=== PATIENT | female | born 1950 | race Caucasian/White ===

== ENCOUNTER 2023-01-09 14:36 | Outpatient (CLI) | payer OTHER, SELFPAY ==
--- NOTE | ~2023-01-09 | CT_ITS ---
EXAMINATION: CT brain wo con DATE: 01/09/2023 15:15 INDICATION: R51.9 - Headache, unspecified . TECHNIQUE: Computed tomography (CT) of the head was performed without intravenous contrast. The mA wa s adjusted according to patient size. Iterative reconstruction technique was employed. The dose-lengt h product was 605.33 mGy-cm. COMPARISON: 11/17/2015. FINDINGS: No acute intracranial hemorrhage or extra-axial fluid collection. No hydrocephalus, mass, or herniation. No acute ischemic infarct. Unremarkable dural venous sinus attenuation. No acute osseous abnormality. The aerated spaces are clear. Moderate atrophy and chronic white matter change. Atherosclerotic intracranial calcification. Left pa rieto-occipital encephalomalacia. IMPRESSION: No acute intracranial process. Reviewed, dictated and finalized at location K. NE COMMUNITY MANAGER
--- NOTE | ~2023-01-09 | XR_ITS ---
EXAMINATION: XR chest 2V Exam Date/Time: 01/09/2023 15:05 SEARCH ENGINE OPTIMIZATION CONSULTANT HISTORY: CHEMICAL EXPOUSURE X 4 WKS AGO W/ SOB MIDSTERNAL CP SINCE Comparison: 04/08/2011. RESULT: Lines, tubes, and devices: None. Lungs and pleura: Senescent and emphysematous change. Biapical and bilateral upper lung scar. Right lower lung nipple shadow. Subsegmental airspace disease in the right lung base. Bilateral posterior c ostophrenic angle blunting. Cardiomediastinal silhouette: Stable. Other: No acute osseous or upper abdominal finding. IMPRESSION: Subsegmental right basilar atelectasis/consolidation. Possible small bilateral pleural effusions. Reviewed, dictated and finalized at location K. CH ENGINE OPTIMIZATION CONSULTANT
[2023-01-09 15:14] LABS: Basophils Absolute Auto 0.1 K/mm3 (0.0-0.1); Eosinophils Absolute Auto 0.1 K/mm3 (0-0.3); Eosinophils Percent Auto 1.6 % (0-4.4); Hematocrit 44.2 % (37.0-47.0); Hemoglobin 14.3 g/dL (12.0-15.0); Immature Granulocyte Absolute 0.01 K/mm3 (0.00-0.031); Immature Granulocyte Percent A 0.2 % (0-0.5); Lymphocytes Absolute Auto 0.71 K/mm3 (0.9-3.2); Lymphocytes Percent Auto 13.9 % (18.3-44.2); Mean Corpuscular HGB Conc 32.4 g/dl (32-36); Mean Corpuscular Hemoglobin 29.7 pg (26-34); Mean Corpuscular Volume 91.7 fl (80-100); Mean Platelet Volume 10.6 fl (7.4-10.4); Monocytes Absolute Auto 0.4 K/mm3 (0.1-0.6); Monocytes Percent Auto 8.1 % (2.6-8.5); Neutrophils Absolute Auto 3.8 K/mm3 (1.3-6.7); Neutrophils Percent Auto 75.2 % (45.5-73.1); Platelet Count Result 186 k/mm3 (150-375); Red Blood Count 4.82 M/mm3 (4.2-5.4); Red Cell Distribution Width 13.1 % (11.5-14.5); White Blood Count 5.1 K/mm3 (4.5-10.0)
[2023-01-09 15:26] LABS: Alanine Aminotransferase 30 U/L (6-35); Albumin Level 4.2 g/dL (3.5-5.1); Alkaline Phosphatase 105 U/L (38-126); Anion Gap 8 mmol/L (8-16); Aspartate Amino Transferase 41 U/L (14-36); Blood Urea Nitrogen 15 mg/dL (7-17); Calcium 9.5 mg/dL (8.4-10.2); Carbon Dioxide 29 mmol/L (22-30); Chloride 105 mmol/L (98-107); Cholesterol 211 mg/dL (0-200); Estimated Glomerular Filt Rate > 60; Glucose 104 mg/dL (65-110); HDL Direct 99 mg/dL; Potassium 3.9 mmol/L (3.4-5.0); Sodium 142 mmol/L (137-145); Triglycerides 70 mg/dL (<150)
[2023-01-09 15:37] LABS: LDL Cholesterol Direct 85 mg/dL
== END 2023-01-09 14:37 | disposition home or self-care (01) ==
PROVIDERS: PCP Family Medicine; Visit Provider Family Medicine
DX: E78.5 Hyperlipidemia, unspecified (principal); J45.20 Mild intermittent asthma, uncomplicated; L40.9 Psoriasis, unspecified; M06.9 Rheumatoid arthritis, unspecified; Z00.00 Encounter for general adult medical examination without abnormal findings; Z86.73 Personal history of transient ischemic attack (TIA), and cerebral infarction without residual deficits; R51.9 Headache, unspecified; T59.891A Toxic effect of other specified gases, fumes and vapors, accidental (unintentional), initial encounter; Z86.79 Personal history of other diseases of the circulatory system; L10.9 Pemphigus, unspecified
CPT/HCPCS: 36415; 70450; 71046; 80053; 80061; 85025

== ENCOUNTER 2023-05-24 17:48 | Emergency (ER) | payer OTHER, SELFPAY ==
[2023-05-24 18:21] VITALS: BP 157/86; PULSE 72; RESP 16; TEMP 37.1; O2SAT 97
== END 2023-05-24 21:18 | disposition left against medical advice (07) ==
PROVIDERS: PCP Family Medicine
DX: R51.9 Headache, unspecified (principal)
CPT/HCPCS: 99199

== ENCOUNTER 2023-05-30 02:28 | Observation (INO) | payer OTHER, SELFPAY ==
[2023-05-30] VITALS (17 sets, daily range): BP systolic 108–157; BP diastolic 64–90; PULSE 56–90; RESP 16–22; TEMP 36.1–38.8; O2SAT 92–99; BMI 23.3; BMI 25.5
--- NOTE | ~2023-05-30 | XR_ITS ---
Portable chest x-ray Comparison: 01/09/2023 Clinical History: Shortness of breath Findings: Suspected COPD pattern of the lungs. No consolidation or pleural effusion. Cardiomediasti nal silhouette is stable. Bones and soft tissues are unremarkable. Impression: No acute abnormality evident. Probable COPD. Reviewed, dictated and finalized at [facility]. Impression: No acute abnormality evident. Probable COPD.
--- NOTE | 2023-05-30 02:34 | ECG_ITS ---
SEE SCANNED COPY FOR CONFIRMED REPORT MTDD
[2023-05-30 02:45] LABS: Hematocrit 41.2 % (37.0-47.0); Hemoglobin 13.3 g/dL (12.0-15.0); Immature Platelet Fraction Pct 5.4 % (0.9-11.2); Mean Corpuscular HGB Conc 32.3 g/dl (32-36); Mean Corpuscular Hemoglobin 29.3 pg (26-34); Mean Corpuscular Volume 90.7 fl (80-100); Mean Platelet Volume 10.5 fl (7.4-10.4); Platelet Count Result 122 k/mm3 (150-375); Red Blood Count 4.54 M/mm3 (4.2-5.4); Red Cell Distribution Width 13.6 % (11.5-14.5); White Blood Count 3.5 K/mm3 (4.5-10.0)
[2023-05-30 02:54] LABS: Alanine Aminotransferase 36 U/L (6-35); Albumin Level 4.1 g/dL (3.5-5.1); Alkaline Phosphatase 87 U/L (38-126); Anion Gap 10 mmol/L (4-12); Aspartate Amino Transferase 65 U/L (14-36); Bilirubin,Total 0.8 mg/dL (0.2-1.3); Blood Urea Nitrogen 26 mg/dL (7-17); Calcium 9.1 mg/dL (8.4-10.2); Carbon Dioxide 22 mmol/L (22-30); Chloride 104 mmol/L (98-107); Estimated Glomerular Filt Rate 44; Glucose 85 mg/dL (65-110); Potassium 3.9 mmol/L (3.4-5.0); Sodium 136 mmol/L (137-145)
[2023-05-30 03:09] LABS: Band Neutrophils Percent 3 % (0-6); Lymphocytes Absolute Manual 0.59 K/mm3 (1.1-4.5); Monocytes Absolute Manual 0.35 K/mm3 (0.1-0.90); Monocytes Percent Manual 10 % (3-9); Neutrophils Absolute Manual 2.55 K/mm3 (1.7-7.2); Neutrophils Percent Manual 70 % (46-73); Total Cells Counted 100
[2023-05-30 03:10] LABS: Hypochromasia 1+; Platelet Estimate Slightly Decreased (Adequate); Schistocytes None Seen
[2023-05-30] MEDS: ACETAMINOPHEN 500 MG TABLET 1000 MG PO (03:17)
[2023-05-30] MEDS: SODIUM CHLORIDE 0.9% IV 2,000 ML 999 ML IV CONT (03:17)
[2023-05-30 03:20] LABS: Influenza A QL RT-PCR Negative (Negative); Influenza B QL RT-PCR Negative (Negative); RSV RNA, RT-PCR Negative (Negative); SARS-CoV-2 RNA PCR Positive (Negative)
[2023-05-30] MEDS: IBUPROFEN IV 800 MG/200 ML 800 MG/200 ML BAG 400 MG IVPB (03:21)
[2023-05-30 03:23] LABS: Lactic Acid Reflex 1.3 mmol/L (0.7-2.0)
--- NOTE | 2023-05-30 03:36 | ED.GENADULT ---
HPI - General Adult General Chief complaint: Altered Mental Status Stated complaint: WEAKNESS, SOB, FEVER Time Seen by Provider: 05/30/23 02:30 History of Present Illness HPI narrative: this is a 72-year-old female presenting for fevers and altered mental status. Patient is confused and A&Ox1. A&O x4 baseline She cannot provide much information other than she feels weak and has a headache. per the daughter for last 2 days the patient been more confused than usual. Family had been talking on phone with her and became quite concerned about how confused she was. The patient's son picked her up and took her home to keep an eye on her. Earlier today they went to [facility] where they had a CT scan of her head and other tests ordered. They do not know the results but know that they were discharged. Patient has a well documented history of bizarre thinking and strange behavior but is not typically this confused. She lives on her own, has a tidy house and frequently gets around using buses without difficulty. The daughter says that sometimes she wears a metal hat to keep out the wifi. Related Data Home Medications Medication Instructions Recorded Confirmed prednisone 10 mg tablet 10 mg PO .prn 01/19/22 01/19/22 Allergies Allergy/AdvReac Type Severity Reaction Status Date / Time albuterol Allergy Unknown unknown Verified 05/24/23 17:51 fluticasone Allergy Unknown unknown Verified 05/24/23 17:51 iodine Allergy Unknown Unknown Verified 05/24/23 17:51 levetiracetam Allergy Unknown Unknown Verified 05/24/23 17:51 meperidine Allergy Unknown unknown Verified 05/24/23 17:51 methotrexate Allergy Unknown Unknown Verified 05/24/23 17:51 montelukast Allergy Unknown unknown Verified 05/24/23 17:51 morphine Allergy Unknown unknown Verified 05/24/23 17:51 mushroom Allergy Unknown unknown Verified 05/24/23 17:51 naproxen Allergy Unknown unknown Verified 05/24/23 17:51 nebivolol Allergy Unknown unknown Verified 05/24/23 17:51 pseudoephedrine Allergy Unknown unknown Verified 05/24/23 17:51 salmeterol Allergy Unknown unknown Verified 05/24/23 17:51 sulfite Allergy Unknown unknown Verified 05/24/23 17:51 theophylline Allergy Unknown unknown Verified 05/24/23 17:51 yellow dye Allergy Unknown unknown Verified 05/24/23 17:51 Sulfa (Sulfonamide AdvReac Unknown Wheezing Verified 05/24/23 17:51 Antibiotics) ADVAIR Allergy Unknown Unknown Uncoded 01/09/23 13:10 HIGH DOSE ASA Allergy Unknown Unknown Uncoded 01/09/23 13:10 HIGH DOSE IBUPROFEN Allergy Unknown Unknown Uncoded 01/09/23 13:10 IVP DYE Allergy Unknown Unknown Uncoded 01/09/23 13:10 PMFSH Family History Family History Mother Family history of cardiac disorder Cerebrovascular accident Patient's mother is Family history of heart disease in male family member before age 55 Sibling Hypertension Family history of allergic disorder Family history of malignant neoplasm Father Family history of Parkinson's disease Family history of renal failure Patient's father is Asthma Social History Social History Smoking status: Never smoker Alcohol intake: never Substance use: never Substance use type: does not use Lack of Transportation: No Lack of Food: Never True Current Housing: I Have Housing Concerned About Future Housing: No Difficulty Paying Gas/Electric Bills: No Difficulty Paying for Meds: No Currently Unemployed: No Education: Bachelor's Degree Difficulty w/ Childcare or Family Care: No Exam Narrative: APPEARANCE: No apparent distress. A&O x1-2 Head: atraumatic. EYES: EOMI, NOSE: Atraumatic NECK: Trachea midline , no neck stiffness or meningismus RESPIRATORY: No increased rate of breathing clear to auscultation CARDIOVASCULAR: RRR, no peripheral edema ABDOMINAL: Non-distended soft nontender MUSCULOSKELETAl: N
[2023-05-30 03:51] LABS: Appearance Urine Clear (Clear); Bacteria Urine None Seen /hpf; Bilirubin Urine Negative (Negative); Blood Urine 1+ (Negative); Color Urine Yellow (Yellow); Glucose Urine UA Negative (Negative); Ketones Urine 2+ mg/dL (Negative); Leukocyte Esterase Ur Trace LEU/UL (Negative); Nitrate Urine Negative (Negative); Non Pathogenic Casts 0-2; Protein Urine Negative (Negative); Specific Grav Ur 1.016 (1.001-1.035); Squamous Epithelial Cell Urine None Seen /hpf (Few); WBC Urine 0-5 /hpf (0-3); pH Urine 5.5 (5.0-9.0)
[2023-05-30 04:11] LABS: Add Urine Microscopic? YES
--- NOTE | 2023-05-30 06:20 | ADMGEN ---
This patient, Susanna Gutierrez, was admitted to [facility] Surg Room 313-01. Patient/family oriented to hospital policies and general routines including ID bracelet, bed and alarms, visiting hours, pain management, procedures, bathroom and other care routines, personal items, smoking policy, room service/diet, and visiting hours. Information on how to activate the Rapid Response Team has been discussed. Patient/Family are encouraged to report perceived risks to care and to ask questions if they do not understand what they are told or what they should do.
--- NOTE | 2023-05-30 08:04 | PM.IMHP ---
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 Schizophrenia versus schizoaffective worse is dementia with psychosis) Who presented to the ER with family due to fevers and altered mental status. The patient at baseline has a well documented history of bizarre thinking and strange behavior but is usually not confused. Her daughter reports that the patient frequently will wear and metal hat to keep out wifi. She is usually alert orient times 4 and be sides her odd thoughts and paranoia is able to keep a clean house and is able to travel around the town intake care for her activities of daily living by using bus transport. Family has noted that she has been confused for 2 days while talking to her on the phone. She had also been having increased weakness and headache. Her son picked her up and took her to his house of the could keep an eye on her. He was concerned enough about her confusion that he took [facility] where they had a CT scan of her head completed and other test ordered. They did not know the exact results of the test but stated that they were discharged reportedly without seeing a provider. Given her continued symptoms they decided to bring her to our facility. Infectious workup at that time demonstrated patient was positive for COVID, she had mild leukopenia and electrolyte panel demonstrated acute kidney injury in her urine demonstrated positive ketones. In the ER she was alert oriented to person and place but was confused as to the month in year. She was able to delineate some of her recent symptoms but was not able to verbalize that time frame. Patient does report a mild cough. She states that she has frequently short of breath due to history of asthma. The family did mention, to the ER staff, that they felt some of the patient's asthma symptoms were more due to anxiety Essentially all information obtained was from review of external macro records and ER physician report. Also secondhand report from family and nursing staff. Review of Systems Review of Systems: Review of systems limited due to patient's degree of confusion but was with pertinent positives and negatives as above. [facility] Past Medical History Medical History (Updated 04/17/24 @ 08:38 by Kamala Kennedy DO) Dementia Hx of completed stroke With chronic left parietal occipital encephalomalacia and moderate atrophy and chronic white matter changes Hx of intracranial hemorrhage Due to carotid artery dissection 2012 Hyperlipidemia Mild intermittent asthma without complication Psoriasis Surgical History Surgical History (Updated 05/30/23 @ 08:20 by Kamala Kennedy DO) Surgical history unknown Family History Family History Mother Family history of cardiac disorder Cerebrovascular accident Patient's mother is Family history of heart disease in male family member before age 55 Sibling Hypertension Family history of allergic disorder Family history of malignant neoplasm Father Family history of Parkinson's disease Family history of renal failure Patient's father is Asthma Social History Social History (Updated 05/30/23 @ 08:21 by Kamala Kennedy DO) Social History: The patient lives her own home. 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 Smoking status: Never smoker Alcohol intake: never Substance use: never Substance use type: does not use Do You Feel Safe in your Home?: Yes Lack of Transportation: No Lack of Food: Never True Current Housing: I Have Housing Concerned About Future Housing: No Difficulty Paying Gas/Electric Bills: No
[2023-05-30] MEDS: LACTATED RINGERS 1,000 ML 100 ML IV CONT (09:45)
[2023-05-30] MEDS: ALBUTEROL SULFATE NEB 2.5 MG/3 ML INH INHALATION (22:29)
[2023-05-31 06:00] VITALS: BP 115/70; PULSE 74; RESP 16; TEMP 37.6; O2SAT 94
[2023-05-31 06:41] LABS: Basophils Percent Auto 0.3 % (0.2-1.2); Hematocrit 41.5 % (37.0-47.0); Hemoglobin 13.5 g/dL (12.0-15.0); Immature Granulocyte Absolute 0.01 K/mm3 (0.00-0.031); Immature Granulocyte Percent A 0.3 % (0-0.5); Lymphocytes Absolute Auto 0.97 K/mm3 (0.9-3.2); Mean Corpuscular HGB Conc 32.5 g/dl (32-36); Mean Corpuscular Hemoglobin 29.3 pg (26-34); Mean Corpuscular Volume 90.2 fl (80-100); Monocytes Absolute Auto 0.4 K/mm3 (0.1-0.6); Monocytes Percent Auto 11.9 % (2.6-8.5); Neutrophils Percent Auto 58.5 % (45.5-73.1); Platelet Count Result 115 k/mm3 (150-375); Red Cell Distribution Width 13.4 % (11.5-14.5); White Blood Count 3.4 K/mm3 (4.5-10.0)
[2023-05-31 07:31] LABS: Alanine Aminotransferase 39 U/L (6-35); Albumin Level 3.9 g/dL (3.5-5.1); Alkaline Phosphatase 81 U/L (38-126); Anion Gap 7 mmol/L (4-12); Aspartate Amino Transferase 73 U/L (14-36); Bilirubin,Total 0.6 mg/dL (0.2-1.3); Blood Urea Nitrogen 17 mg/dL (7-17); Calcium 9.1 mg/dL (8.4-10.2); Carbon Dioxide 23 mmol/L (22-30); Chloride 107 mmol/L (98-107); Estimated CRCL calculation 39 ml/min; Estimated Glomerular Filt Rate 55; Glucose 82 mg/dL (65-110); Potassium 3.4 mmol/L (3.4-5.0); Sodium 137 mmol/L (137-145)
[2023-05-31 08:15] VITALS: O2SAT 94
--- NOTE | 2023-05-31 13:15 | PM.DS ---
DS: Summary Time Spent with Patient Time attestation: Total time spent providing and/or coordinating discharge services: DS: Data Data Completed and Pending Labs on day of discharge: Labs from last 24 hours 05/31/23 06:14 WBC 3.4 L RBC 4.60 Hgb 13.5 Hct 41.5 MCV 90.2 MCH 29.3 MCHC 32.5 RDW 13.4 Plt Count 115 L MPV 11.0 H Immature Gran % (Auto) 0.3 Neut % (Auto) 58.5 Lymph % (Auto) 29.0 Clare % (Auto) 11.9 H Eos % (Auto) 0.0 Baso % (Auto) 0.3 Lymph # (Auto) 0.97 Clare # (Auto) 0.4 Eos # (Auto) 0.0 Baso # (Auto) 0.0 Abs Immat Gran (auto) 0.01 Absolute Neuts (auto) 2.0 Absolute Nucleated RBC 0.000 Nucleated RBC % 0.0 % Immature Plt Fraction 6.0 Sodium 137 Potassium 3.4 Chloride 107 Carbon Dioxide 23 Anion Gap 7 BUN 17 Creatinine 1.00 Estim Creat Clear Calc 39 Estimated GFR 55 L Glucose 82 Calcium 9.1 Total Bilirubin 0.6 AST 73 H ALT 39 H Alkaline Phosphatase 81 Total Protein 7.0 Albumin 3.9 Preliminary micro results at discharge 05/30/23 03:28 Blood Culture - Preliminary Blood 05/30/23 03:02 Blood Culture - Preliminary Blood Discharge Plan Discharge Discharge Medications: No Action prednisone 10 mg tablet 10 mg PO .prn Rx Instructions: Take one daily for 5 days with asthma flares albuterol sulfate [Proventil HFA] 90 mcg/actuation HFA aerosol inhaler 1 puff inhalation Q4H PRN (Reason: shortness of breath or wheezing) Qty: 6.7 8RF cromolyn 20 mg/2 mL solution for nebulization See Rx Instructions .ROUTE .COMPLEX Qty: 240 0RF Hold Instructions: Home Medication placed on hold at Doctor's office Dose Instruction: INHALE 2 ML BY NEBULIZER TWICE DAILY. Rx Instructions: INHALE 2 ML BY NEBULIZER TWICE DAILY. albuterol sulfate 2.5 mg /3 mL (0.083 %) solution for nebulization 2.5 mg INHALATION Q4-6H PRN (Reason: shortness of breath or wheezing) Qty: 90 2RF Hold Instructions: Home Medication placed on hold at Doctor's office Date of admission: 05/30/23 04:45 Primary Care Provider: Henry Mack Admitting Provider: Kamala Kennedy Attending physician on admission: Kamala Kennedy Condition: Stable
[2023-05-31 14:00] VITALS: BP 125/84; PULSE 64; RESP 16; TEMP 36.6; O2SAT 98
--- NOTE | 2023-05-31 15:00 | PC.NURSE ---
Pt complaining repeatedly throughout the day that she hates it here and wants to leave. This RN told the patient it is necesary to see the doctor before leaving. MD came to see the patient and educated the patient on the importance of staying admitted at this time. The patient did not agree and stated she would like to leave AMA. This RN talked with the patient as well as with her son. The son stated he would be picking the patient up and also understands the risks of leaving AMA at this time. Upon arrival of the son AMA paper was signed, IV was removed and the patient was wheeled out to the car.
--- NOTE | 2023-05-31 15:17 | PM.IMPN ---
Progress Note: A&P Assessment and Plan (1) Transaminitis: Code(s): R74.01 - Elevation of levels of liver transaminase levels Status: Acute (2) Acute kidney injury: Code(s): N17.9 - Acute kidney failure, unspecified Status: Acute (3) Acute delirium: Code(s): R41.0 - Disorientation, unspecified Status: Acute (4) COVID: Code(s): U07.1 - COVID-19 Status: Acute Plan 72-year-old female with a past medical history of is in history of intercranial bleed resulting in completed stroke, dementia, mild asthma, chronic psychiatric illness with bizarre thinking and strange behaviors (?? Schizophrenia versus schizoaffective worse is dementia with psychosis) Who presented to the ER with family due to fevers and altered mental status. Found to have COVID-19. 1. COVID-19: On room air Asymptomatic Supportive treatment 2. Dementia with delirium: Seems to be improving Supportive care PT/OT 3. HELEN: Seems to be improving Avoid nephrotoxins Recheck BMP in AM 4. Transaminitis: ? Etiology Seems to be stable Will trend LFTs Hold off ultrasound for now since LFTs are stable without any elevation in bilirubin 5. DVT prophylaxis: Lovenox 6. Code status: Full 7. Disposition: Anticipate discharge in next 24 hours Time Spent With Patient Time with patient: 15 - 25 minutes Subjective Date/time seen: 05/31/23 15:17 Interval history: Feeling better, eager to go home Review of Systems Review of Systems: All systems reviewed & are unremarkable except as noted in HPI and below Exam Narrative: Weight 67.5 kg BMI 25.5 Const: Other: Appears stated age, well-developed well-nourished, slightly disheveled HENMT: Other: Head is normocephalic atraumatic, mucous membranes are tacky, no oral pharyngeal erythema, good dentition Eyes: Other: Pupils are equal and reactive no scleral icterus, no conjunctival pallor Neck: Other: No thyromegaly, supple, nontender Resp: Other: Clear to auscultation bilaterally, no increased work of breathing Cardio: Other: Regular rate, regular rhythm, 2+ bilateral radial pedal pulses GI: Other: Soft, nondistended, exam limited as the patient did not cooperate with supine exam and remained in a semi reclined position with her abdominal muscles 10 states she was trying to get out of bed : Other: The patient is wearing depends Back/Spine/Pelvis: Other: Mild kyphosis Skin: Other: Warm to touch, no pallor non jaundice Neuro: Other: Alert oriented to person place, confused as to month in year, responses are slow but speech is clear, normal muscular tone, unsteady gait Extrem: Other: No clubbing, no cyanosis, marked ulnar deviation of her fingers consistent with her history of rheumatoid arthritis Psych: Other: Pleasantly confused, cooperative, restless, easily distracted, voices statements of paranoia Objective Data Vital Signs Vital Signs: Vital Signs - 24 hr 05/30/23 20:00 05/30/23 22:29 05/30/23 22:35 Temperature Pulse Rate 64 Respiratory Rate Blood Pressure Pulse Oximetry 99 96 Oxygen Delivery Room Air Room Air Fraction of Inspired Oxygen 21 05/30/23 22:37 05/30/23 22:00 05/31/23 06:00 Temperature 99.3 F 99.7 F H Pulse Rate 66 68 74 Respiratory Rate 16 16 Blood Pressure 153/90 H 115/70 Pulse Oximetry 99 94 Oxygen Delivery Fraction of Inspired Oxygen 05/31/23 14:00 05/31/23 08:15 Temperature 97.8 F Pulse Rate 64 Respiratory Rate 16 Blood Pressure 125/84 Pulse Oximetry 98 94 Oxygen Delivery Room Air Fraction of Inspired Oxygen Intake/Output Intake/Output: Intake & Output 05/28/23 05/29/23 05/30/23 05/31/23 23:59 23:59 23:59 23:59 Intake Total 3300 350 Balance 3300 350 Meds/Results Medications: Active Medications Generic Name Dose Route Start Last Admin Trade Nam
--- NOTE | 2023-06-07 14:15 | PM.DS ---
DS: Admitting Diagnosis Discharge Date 05/31/23 Admitting Diagnosis Fever Altered mental status DS: Discharge Diagnosis Discharge Diagnosis (1) COVID: Code(s): U07.1 - COVID-19 Status: Acute DS: Summary Hospital Course Reason for hospitalization: Fever Altered mental status Hospital Course: 72-year-old female with a past medical history of is in history of intercranial bleed resulting in completed stroke, dementia, mild asthma, chronic psychiatric illness with bizarre thinking and strange behaviors (?? Schizophrenia versus schizoaffective worse is dementia with psychosis) Who presented to the ER with family due to fevers and altered mental status.? Found to have COVID-19. 1. COVID-19: On room air Asymptomatic Supportive treatment 2. Dementia with delirium: Seems to be improving Supportive care PT/OT 3. HELEN: Seems to be improving Avoid nephrotoxins Recheck BMP in AM 4. Transaminitis: ?? Etiology Seems to be stable Patient left against medical advise after my shift Status at Discharge Overall status at discharge: patient is progressing back to baseline Time Spent with Patient Time attestation: Total time spent providing and/or coordinating discharge services: Time spent: Less than 30 minutes Exam Narrative: Weight 67.5 kg BMI 25.5 Const: Other: Appears stated age, well-developed well-nourished, slightly disheveled HENMT: Other: Head is normocephalic atraumatic, mucous membranes are tacky, no oral pharyngeal erythema, good dentition Eyes: Other: Pupils are equal and reactive no scleral icterus, no conjunctival pallor Neck: Other: No thyromegaly, supple, nontender Resp: Other: Clear to auscultation bilaterally, no increased work of breathing Cardio: Other: Regular rate, regular rhythm, 2+ bilateral radial pedal pulses GI: Other: Soft, nondistended, exam limited as the patient did not cooperate with supine exam and remained in a semi reclined position with her abdominal muscles 10 states she was trying to get out of bed : Other: The patient is wearing depends Back/Spine/Pelvis: Other: Mild kyphosis Skin: Other: Warm to touch, no pallor non jaundice Neuro: Other: Alert oriented to person place, confused as to month in year, responses are slow but speech is clear, normal muscular tone, unsteady gait Extrem: Other: No clubbing, no cyanosis, marked ulnar deviation of her fingers consistent with her history of rheumatoid arthritis Psych: Other: Pleasantly confused, cooperative, restless, easily distracted, voices statements of paranoia Discharge Plan Discharge Consulting providers: Landen Palmer Patient Disposition: Left Against Medical Advice Discharge Medications: No Action cefdinir 300 mg capsule 300 mg PO Q12H Qty: 10 0RF cromolyn 20 mg/2 mL solution for nebulization See Rx Instructions .ROUTE .COMPLEX Qty: 240 0RF Hold Instructions: Home Medication placed on hold at Doctor's office Dose Instruction: INHALE 2 ML BY NEBULIZER TWICE DAILY. Rx Instructions: INHALE 2 ML BY NEBULIZER TWICE DAILY. albuterol sulfate 2.5 mg /3 mL (0.083 %) solution for nebulization 2.5 mg INHALATION Q4-6H PRN (Reason: shortness of breath or wheezing) Qty: 90 2RF Hold Instructions: Home Medication placed on hold at Doctor's office albuterol sulfate 90 mcg/actuation HFA aerosol inhaler See Rx Instructions .ROUTE .COMPLEX Qty: 6.7 8RF Dose Instruction: INHALE 1 PUFF BY MOUTH EVERY 4 HOURS NEEDED FOR SHORTNESS OF BREATH Rx Instructions: INHALE 1 PUFF BY MOUTH EVERY 4 HOURS NEEDED FOR SHORTNESS OF BREATH Date of admission: 05/30/23 04:45 Primary Care Provider: Henry Mack Admitting Provider: Kamala Kennedy Attending physician on admission: Rosa Marrero Condition: Stable [facility]illing [facility] Discharge Hospit
== END 2023-05-31 15:00 | disposition left against medical advice (07) ==
LOC: ANHED 04:03 → ANH3MEDSUR 05:36
PROVIDERS: Nurse Practitioner Acute Care; Admitting Provider Internal Medicine; Emergency Provider Emergency Medicine; PCP Family Medicine; Visit Provider Internal Medicine
DX: U07.1 COVID-19 (principal); R41.0 Disorientation, unspecified; N17.9 Acute kidney failure, unspecified; J45.20 Mild intermittent asthma, uncomplicated; R94.31 Abnormal electrocardiogram [ECG] [EKG]; Z53.29 Procedure and treatment not carried out because of patient's decision for other reasons; Z79.52 Long term (current) use of systemic steroids; Z79.51 Long term (current) use of inhaled steroids; R74.01 Elevation of levels of liver transaminase levels; Z86.73 Personal history of transient ischemic attack (TIA), and cerebral infarction without residual deficits; Z79.899 Other long term (current) drug therapy
CPT/HCPCS: 36415; 71045; 80053; 81001; 83605; 85025; 85055; 87040; 87637; 93005; 94640; 96361; 96365; 97165; 99285; A9270; G0378; J1650; J1741; J7030; J7120

== ENCOUNTER 2023-06-04 18:37 | Observation (INO) | payer OTHER, SELFPAY ==
--- NOTE | ~2023-06-04 | XR_ITS ---
Portable chest x-ray Comparison: 06/04/2023 Clinical History: Dyspnea Findings: Left basilar airspace consolidation is present focally. Right nipple shadow noted. Probabl e COPD. Cardiomediastinal silhouette is stable. Bones and soft tissues are unremarkable. Impression: Left basilar consolidation. Correlate for atelectasis versus pneumonia. COPD. Reviewed, dictated and finalized at location . Impression: Left basilar consolidation. Correlate for atelectasis versus pneumonia. COPD.
--- NOTE | ~2023-06-04 | XR_ITS ---
EXAMINATION: XR chest 1V portable Exam Date/Time: 06/04/2023 20:00 CDT HISTORY: weakness Comparison: 05/30/2023. RESULT: Lines, tubes, and devices: None. Lungs and pleura: Biapical pleural scarring. Emphysematous/senescent change. Chronic right costophre jodie angle blunting. No focal consolidation, large pleural effusion, or pneumothorax. Cardiomediastinal silhouette: Stable. Other: No acute osseous or upper abdominal finding. IMPRESSION: No acute cardiopulmonary process. Reviewed, dictated and finalized at location K.
[2023-06-04 18:50] VITALS: BP 136/69; PULSE 73; RESP 18; TEMP 37.7; O2SAT 97
[2023-06-04 19:17] LABS: Basophils Percent Auto 0.2 % (0.2-1.2); Hematocrit 39.3 % (37.0-47.0); Hemoglobin 13.1 g/dL (12.0-15.0); Immature Granulocyte Absolute 0.01 K/mm3 (0.00-0.031); Immature Granulocyte Percent A 0.2 % (0-0.5); Immature Platelet Fraction Pct 7.9 % (0.9-11.2); Lymphocytes Absolute Auto 0.66 K/mm3 (0.9-3.2); Lymphocytes Percent Auto 11.3 % (18.3-44.2); Mean Corpuscular HGB Conc 33.3 g/dl (32-36); Mean Corpuscular Hemoglobin 29.3 pg (26-34); Mean Corpuscular Volume 87.9 fl (80-100); Mean Platelet Volume 11.3 fl (7.4-10.4); Monocytes Absolute Auto 0.7 K/mm3 (0.1-0.6); Monocytes Percent Auto 11.9 % (2.6-8.5); Neutrophils Absolute Auto 4.5 K/mm3 (1.3-6.7); Neutrophils Percent Auto 76.4 % (45.5-73.1); Platelet Count Result 125 k/mm3 (150-375); Red Blood Count 4.47 M/mm3 (4.2-5.4); Red Cell Distribution Width 13.2 % (11.5-14.5); White Blood Count 5.9 K/mm3 (4.5-10.0)
[2023-06-04 19:25] LABS: Alanine Aminotransferase 32 U/L (6-35); Albumin Level 4.1 g/dL (3.5-5.1); Alkaline Phosphatase 78 U/L (38-126); Anion Gap 9 mmol/L (4-12); Aspartate Amino Transferase 42 U/L (14-36); Blood Urea Nitrogen 26 mg/dL (7-17); Calcium 9.4 mg/dL (8.4-10.2); Carbon Dioxide 24 mmol/L (22-30); Chloride 104 mmol/L (98-107); Estimated Glomerular Filt Rate 49; Glucose 96 mg/dL (65-110); Potassium 3.4 mmol/L (3.4-5.0); Sodium 137 mmol/L (137-145)
--- NOTE | 2023-06-04 19:41 | ECG_ITS ---
SEE SCANNED COPY FOR CONFIRMED REPORT MTDD
[2023-06-04] MEDS: SODIUM CHLORIDE 0.9% IV 1,000 ML 999 ML IV CONT (20:14)
--- NOTE | 2023-06-04 20:14 | PC.NURSE ---
After opening Tylenol, patient refuses the medication because it is the worst medication made .
[2023-06-04 20:18] LABS: Lactic Acid Reflex 1.3 mmol/L (0.7-2.0); Magnesium 2.1 mg/dL (1.6-2.3)
[2023-06-04 20:31] LABS: NT Pro B Type Natriuretic Pept 473 pg/mL (19.9-100); Troponin I < 0.012 ng/mL (0.000-0.034)
[2023-06-04 20:50] LABS: Influenza A QL RT-PCR Negative (Negative); Influenza B QL RT-PCR Negative (Negative); RSV RNA, RT-PCR Negative (Negative); SARS-CoV-2 RNA PCR Positive (Negative)
[2023-06-04 20:51] LABS: Procalcitonin 0.1 ng/mL
[2023-06-04 23:19] LABS: Appearance Urine Clear (Clear); Bacteria Urine 4+ /hpf; Bilirubin Urine Negative (Negative); Blood Urine Non-Hemolyzed Trace (Negative); Color Urine Yellow (Yellow); Glucose Urine UA Negative (Negative); Ketones Urine 2+ mg/dL (Negative); Leukocyte Esterase Ur 1+ LEU/UL (Negative); Need Manual Microscopic Reviewed; Nitrate Urine Positive (Negative); Non Pathogenic Casts 0-2; Protein Urine 1+ mg/dL (Negative); RBC Urine 0-2 /hpf (0-2); Specific Grav Ur 1.015 (1.001-1.035); Squamous Epithelial Cell Urine Occasional /hpf (Few)
[2023-06-04 23:21] LABS: Add Urine Microscopic? YES
--- NOTE | 2023-06-04 23:30 | ED.GENADULT ---
HPI - General Adult General Chief complaint: Urogenital-Female Stated complaint: home test showed UTI, fever 100.0, covid Time Seen by Provider: 06/04/23 19:23 History of Present Illness HPI narrative: Patient is 73-year-old female who presents emergency department with chief complaint of not feeling right the patient reports she was recently in the hospital for COVID-19 went home was feeling better and then now is starting to feel worse patient states she has been intermittently confused at home reports that she has also had some urinary symptoms. The family reports that the patient was independently and is concerned that now that she has been confused Related Data Home Medications Medication Instructions Recorded Confirmed prednisone 10 mg tablet 10 mg PO .prn 01/19/22 05/30/23 Allergies Allergy/AdvReac Type Severity Reaction Status Date / Time albuterol Allergy Unknown unknown Verified 06/04/23 18:40 fluticasone Allergy Unknown unknown Verified 06/04/23 18:40 Iodinated Contrast Media Allergy Unknown Unknown Verified 06/04/23 18:40 iodine Allergy Unknown Unknown Verified 06/04/23 18:40 levetiracetam Allergy Unknown Unknown Verified 06/04/23 18:40 meperidine Allergy Unknown unknown Verified 06/04/23 18:40 methotrexate Allergy Unknown Unknown Verified 06/04/23 18:40 montelukast Allergy Unknown unknown Verified 06/04/23 18:40 morphine Allergy Unknown unknown Verified 06/04/23 18:40 mushroom Allergy Unknown unknown Verified 06/04/23 18:40 naproxen Allergy Unknown unknown Verified 06/04/23 18:40 nebivolol Allergy Unknown unknown Verified 06/04/23 18:40 pseudoephedrine Allergy Unknown unknown Verified 06/04/23 18:40 salmeterol Allergy Unknown unknown Verified 06/04/23 18:40 sulfite Allergy Unknown unknown Verified 06/04/23 18:40 theophylline Allergy Unknown unknown Verified 06/04/23 18:40 yellow dye Allergy Unknown unknown Verified 06/04/23 18:40 Sulfa (Sulfonamide AdvReac Unknown Wheezing Verified 06/04/23 18:40 Antibiotics) ADVAIR Allergy Unknown Unknown Uncoded 06/04/23 18:40 HIGH DOSE ASA Allergy Unknown Unknown Uncoded 06/04/23 18:40 HIGH DOSE IBUPROFEN Allergy Unknown Unknown Uncoded 06/04/23 18:40 Review of Systems Review of Systems: A 10 system review of systems was completed on the patient and is negative except for what is stated in the HPI. Nursing and ancillary documentation was reviewed. [facility] Past Medical History Medical History Dementia Hx of completed stroke With chronic left parietal occipital encephalomalacia and moderate atrophy and chronic white matter changes Hx of intracranial hemorrhage Due to carotid artery dissection 2011 Hyperlipidemia Mild intermittent asthma without complication Psoriasis Surgical History Surgical History Surgical history unknown Family History Family History Mother Family history of cardiac disorder Cerebrovascular accident Patient's mother is Family history of heart disease in male family member before age 55 Sibling Hypertension Family history of allergic disorder Family history of malignant neoplasm Father Family history of Parkinson's disease Family history of renal failure Patient's father is Asthma Social History Social History Social History: The patient lives her own home. 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 Smoking status: Never smoker Alcohol intake: never Substance use: never Substance use type: does not use Do You Feel Safe in your Home?: Yes Lack of Transportation: No Lack of Food: Never True Current Housing: I Have Housing Concerned About Future Housing: No Difficulty Paying Gas/Electric Bills: No Difficulty Paying for Meds: No Currently U
[2023-06-05] VITALS (10 sets, daily range): BP systolic 124–160; BP diastolic 58–94; PULSE 51–83; RESP 18–20; TEMP 35.7–36.7; O2SAT 94–98; BMI 22.2
--- NOTE | 2023-06-05 01:10 | ADMGEN ---
This patient, Susanna Gutierrez, was admitted to Medical Room 243-01. Patient/family oriented to hospital policies and general routines including ID bracelet, bed and alarms, visiting hours, pain management, procedures, bathroom and other care routines, personal items, smoking policy, room service/diet, and visiting hours. Information on how to activate the Rapid Response Team has been discussed. Patient/Family are encouraged to report perceived risks to care and to ask questions if they do not understand what they are told or what they should do.
--- NOTE | 2023-06-05 01:37 | PC.NURSE ---
Patient is resistant to care; refusing telemetry, refusing skin assessment, verbalizes that she will refuse medications with exception of home medication. Patient repeats I don't want to be here ; You cannot restrain me here ; I am in charge of my own decisions and you cannot make me do anything ; I am going to if I stay here, its killing me to be here . Provider notified. RN will continue to monitor.
[2023-06-05] MEDS: LORazepam INJ (*CRX) 2 MG/ML VIAL 1 MG IM (02:25)
[2023-06-05] MEDS: HALOPERIDOL LACTATE 5 MG/ML VIAL IM (02:26)
--- NOTE | 2023-06-05 02:54 | PC.NURSE ---
0215 dtr called floor to voice concerns over mother's difficulty settling in to hospital. requested that staff please get her warm blankets, dim lights and get her to rest.
--- NOTE | 2023-06-05 07:30 | PM.IMHP ---
H&P: HPI History of Present Illness Date/Time: 06/05/23 07:30 Chief Complaint: Urinary symptoms and confusion Narrative: 73 year old female with past medical history of rheumatoid arthritis (not treated), hemorrhagic stroke (residual left sided weakness and decreased vision), mild intermittent asthma, dementia and chronic psychiatric illness with bizarre thinking and strange behaviors (?? Schizophrenia versus schizoaffective worse is dementia with psychosis)?presents to the hospital for urinary symptoms and confusion. Patient previously admitted on 05/29-05/30 for AMS and diagnosed with covid and an HELEN. She was treated with IV fluids before leaving A. She states she still has a slight cough, but denies shortness of breath. Patient continued to be confused at home and was taken to the ED by her son. Patient has a history of bizarre delusional behavior but is not typically confused at baseline. She does state that she wears a metal helmet due to wifi/emf waves causing her prior hemorrhagic stroke and the waves hurting her head. She also notes that she has the power to see and hear things that others cannot, but these montero are hindered while she is in the hospital. She is AOx4 during exam. She states that she was confused at home and has noticed that she just does not know how to do things anymore. She gives the example of not knowing how to use her inhalers. She endorses generalized weakness that has been going on for several days. She was previously able to travel around town, do her ADL independent, ride the bus, and exercise, however as of late does not feel she has the energy to do so. She denies chest pain, shortness of breath, nausea/vomiting and changes in bladder/bowel. Patient denies any psychiatric history. She states that she has never and will never see a psychiatrist and does not believe in psychiatric medicine. Due to patient being AOx4 throughout exam and refusing psych at that time, psych was not consulted. ED workup: CBC without leukocytosis, CMP with elevated BUN/Cr otherwise unremarkable. Covid +.Urinalysis clear appearance with 1+ protein, 2+ ketones, trace blood, positive nitrates, 1+ leukocytes, 11-20 WBC, and 4+ bacteria. CXR no acute cardiopulmonary process. Patient refusing CT head due to feeling as though she has had too many CT scans recently. Review of Systems Review of Systems: All systems reviewed & are unremarkable except as noted in HPI and below PMFSH Past Medical History Medical History Dementia Hx of completed stroke With chronic left parietal occipital encephalomalacia and moderate atrophy and chronic white matter changes Hx of intracranial hemorrhage Due to carotid artery dissection 2011 Hyperlipidemia Mild intermittent asthma without complication Psoriasis Surgical History Surgical History Surgical history unknown Family History Family History Mother Family history of cardiac disorder Cerebrovascular accident Patient's mother is Family history of heart disease in male family member before age 55 Sibling Hypertension Family history of allergic disorder Family history of malignant neoplasm Father Family history of Parkinson's disease Family history of renal failure Patient's father is Asthma Social History Social History Social History: The patient lives her own home. 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 Smoking status: Never smoker Alcohol intake: never Substance use: never Substance use type: does not use Do You Feel Safe in your Home?: Yes Lack of Transportation: YES Lack of Food: Never True Current Housing: I Have Housing Concerned About Future Housing: No Difficulty Paying Gas/Electric Bills: No Di
[2023-06-05 08:12] LABS: Basophils Percent Auto 0.2 % (0.2-1.2); Eosinophils Percent Auto 0.2 % (0-4.4); Hematocrit 35.7 % (37.0-47.0); Hemoglobin 11.8 g/dL (12.0-15.0); Immature Granulocyte Absolute 0.01 K/mm3 (0.00-0.031); Immature Granulocyte Percent A 0.2 % (0-0.5); Immature Platelet Fraction Pct 6.9 % (0.9-11.2); Lymphocytes Absolute Auto 0.98 K/mm3 (0.9-3.2); Lymphocytes Percent Auto 24.4 % (18.3-44.2); Mean Corpuscular HGB Conc 33.1 g/dl (32-36); Mean Corpuscular Hemoglobin 29.5 pg (26-34); Mean Corpuscular Volume 89.3 fl (80-100); Mean Platelet Volume 10.9 fl (7.4-10.4); Monocytes Absolute Auto 0.7 K/mm3 (0.1-0.6); Monocytes Percent Auto 16.5 % (2.6-8.5); Neutrophils Absolute Auto 2.3 K/mm3 (1.3-6.7); Neutrophils Percent Auto 58.5 % (45.5-73.1); Platelet Count Result 113 k/mm3 (150-375); Red Cell Distribution Width 13.2 % (11.5-14.5)
[2023-06-05 08:14] LABS: Alanine Aminotransferase 25 U/L (6-35); Albumin Level 3.2 g/dL (3.5-5.1); Alkaline Phosphatase 60 U/L (38-126); Anion Gap 5 mmol/L (4-12); Aspartate Amino Transferase 35 U/L (14-36); Bilirubin,Total 0.7 mg/dL (0.2-1.3); Blood Urea Nitrogen 23 mg/dL (7-17); Calcium 8.5 mg/dL (8.4-10.2); Carbon Dioxide 26 mmol/L (22-30); Chloride 109 mmol/L (98-107); Estimated CRCL calculation 46 ml/min; Estimated Glomerular Filt Rate > 60; Glucose 76 mg/dL (65-110); Potassium 3.3 mmol/L (3.4-5.0); Sodium 140 mmol/L (137-145)
[2023-06-05] MEDS: SODIUM CHLORIDE 0.9% IV 1,000 ML 100 ML IV CONT (09:06)
--- NOTE | 2023-06-05 10:58 | PCDIET ---
Physician consult for vegetarian. Spoke with diet office today, they are aware of this diet type. Nursing states patient is COVID positive and currently sleeping. Nursing also aware of diet type. No further nutritional interventions needed at this time.
[2023-06-05] MEDS: POTASSIUM CHLORIDE 20 MEQ ER TABLET PO (13:07)
[2023-06-06] VITALS (11 sets, daily range): BP systolic 135–156; BP diastolic 67–120; PULSE 65–98; RESP 18–22; TEMP 36.3–36.7; O2SAT 94–96
[2023-06-06] MEDS: SODIUM CHLORIDE 0.9% IV 1,000 ML 100 ML IV CONT (05:43)
[2023-06-06 06:07] LABS: Basophils Percent Auto 0.2 % (0.2-1.2); Eosinophils Percent Auto 0.2 % (0-4.4); Hematocrit 37.6 % (37.0-47.0); Hemoglobin 12.3 g/dL (12.0-15.0); Immature Granulocyte Absolute 0.01 K/mm3 (0.00-0.031); Immature Granulocyte Percent A 0.2 % (0-0.5); Immature Platelet Fraction Pct 6.3 % (0.9-11.2); Lymphocytes Absolute Auto 0.52 K/mm3 (0.9-3.2); Lymphocytes Percent Auto 10.2 % (18.3-44.2); Mean Corpuscular HGB Conc 32.7 g/dl (32-36); Mean Corpuscular Hemoglobin 29.2 pg (26-34); Mean Corpuscular Volume 89.3 fl (80-100); Mean Platelet Volume 11.2 fl (7.4-10.4); Monocytes Absolute Auto 0.6 K/mm3 (0.1-0.6); Monocytes Percent Auto 11.8 % (2.6-8.5); Neutrophils Absolute Auto 3.9 K/mm3 (1.3-6.7); Neutrophils Percent Auto 77.4 % (45.5-73.1); Platelet Count Result 145 k/mm3 (150-375); Red Blood Count 4.21 M/mm3 (4.2-5.4); White Blood Count 5.1 K/mm3 (4.5-10.0)
[2023-06-06 06:21] LABS: Alanine Aminotransferase 24 U/L (6-35); Albumin Level 3.5 g/dL (3.5-5.1); Alkaline Phosphatase 69 U/L (38-126); Anion Gap 8 mmol/L (4-12); Aspartate Amino Transferase 36 U/L (14-36); Bilirubin,Total 0.6 mg/dL (0.2-1.3); Blood Urea Nitrogen 15 mg/dL (7-17); Calcium 8.6 mg/dL (8.4-10.2); Carbon Dioxide 23 mmol/L (22-30); Chloride 108 mmol/L (98-107); Estimated CRCL calculation 51 ml/min; Estimated Glomerular Filt Rate > 60; Glucose 100 mg/dL (65-110); Sodium 139 mmol/L (137-145)
[2023-06-06 07:25] LABS: Folic Acid 18.1 ng/mL (2.76->20); Vitamin B12 > 1000.0 pg/mL (239-931)
[2023-06-06] MEDS: POTASSIUM CHLORIDE 20 MEQ PACKET (FOR LIQUID) 40 MEQ PO (09:40)
--- NOTE | 2023-06-06 15:12 | PM.IMPN ---
Progress Note: A&P Assessment and Plan (1) Acute delirium: Code(s): R41.0 - Disorientation, unspecified Status: Acute (2) Acute UTI: Code(s): N39.0 - Urinary tract infection, site not specified Status: Acute (3) COVID: Code(s): U07.1 - COVID-19 Status: Acute (4) Acute kidney injury: Code(s): N17.9 - Acute kidney failure, unspecified Status: Acute (5) Bizarre delusion: Code(s): F22 - Delusional disorders Status: Acute (6) Vegetarian: Code(s): Z78.9 - Other specified health status Status: Acute (7) Mild intermittent asthma without complication: Code(s): J45.20 - Mild intermittent asthma, uncomplicated Status: Acute Plan UTI Urine cultures ECOLI blood cultures pending Continue IV hydration. Monitor CBC, CMP watch for sepsis. Rocephin AMS secondary to metabolic encephalopathy, UTI, Dementia Vascular dementia exacerbated by UTI RPR, vitamin D, Hepatitis panel, HIV pending TSH WNL, B12 >1000, Folate 18.[address] Head HX of intracranial hemorrhage 2011 Spoke with Psychiatry will assist and follow may resolve after UTI Family reports previous psychiatric history I will not take medications or seek assistant professor of biochemistry mini mental ordered COVID tested positive 05/29 Asymptomatic continue with supportive care Hypokalemia 3.0 replenished continue to monitor and replenish HX Asthma: Resumed PRN Inhalers Code status: Full code per patient DVT prophylaxis: SCD Stress ulcer prophylaxis: Protonix 40 daily PT/OT notes: PT/OT pendings Disposition: Patient continued admission for confusion, bizarre, agitation secondary to UTI. Attempt to speak with daughter to get some baseline orientation but was not very helpful. Psychiatry assisting and will follow-up if needed when UTI is treated and if behavior continues. PT/OT ordered will likely need assistance from CC for discharge planning. Mini mental ordered. Time Spent With Patient Time with patient: 15 - 25 minutes Subjective Date/time seen: 06/06/23 15:12 Interval history: Admission: Medical Records 73 year old female with past medical history of rheumatoid arthritis (not treated), hemorrhagic stroke (residual left sided weakness and decreased vision), mild intermittent asthma, dementia and chronic psychiatric illness with bizarre thinking and strange behaviors (?? Schizophrenia versus schizoaffective worse is dementia with psychosis)?presents to the hospital for urinary symptoms and confusion. Patient previously admitted on 05/29-05/30 for AMS and diagnosed with covid and an HELEN. She was treated with IV fluids before leaving AMA. She states she still has a slight cough, but denies shortness of breath. Patient continued to be confused at home and was taken to the ED by her son. Patient has a history of bizarre delusional behavior but is not typically confused at baseline. She does state that she wears a metal helmet due to wifi/emf waves causing her prior hemorrhagic stroke and the waves hurting her head. She also notes that she has the power to see and hear things that others cannot, but these montero are hindered while she is in the hospital. She is AOx4 during exam. She states that she was confused at home and has noticed that she just does not know how to do things anymore. She gives the example of not knowing how to use her inhalers. She endorses generalized weakness that has been going on for several days. She was previously able to travel around town, do her ADL independent, ride the bus, and exercise, however as of late does not feel she has the energy to do so. She denies chest pain, shortness of breath, nausea/vomiting and changes in bladder/bowel. Patient denies any psychiatric history. She states that she has never and will never see a psychiatrist and does not believe in psychiatric medicine. Due to patient being AOx4 thr
[2023-06-06 18:11] LABS: Hepatitis B Surface Antigen Negative (Negative)
[2023-06-06 18:17] LABS: HAV RESULT Negative (Negative); Hepatitis B Core IgM Result Negative (Negative)
[2023-06-06 18:28] LABS: Vitamin D 25 Hydroxy 58.4 ng/mL
[2023-06-06 18:29] LABS: Hepatitis C Virus Antibody Negative (Negative)
[2023-06-07] VITALS: PULSE 71
[2023-06-07] MEDS: SODIUM CHLORIDE 0.9% IV 1,000 ML 100 ML IV CONT (01:00)
--- NOTE | 2023-06-07 03:28 | WPDCNPSYCH ---
[facility] Data of Consult Date/Time: 06/07/23 03:28 Requesting Physician: Prasad Gonsalves MD Primary Care Provider: Henry Mack MD Consult Narrative Narrative: Late Entry on 06/06/2024 for Psychiatric Curbside Consultation discussed with Nurse Practitioner on 06/06/2023 (Patient was not seen. Neither Patient nor Patient's Insurance Billed) No formal order for Psychiatric Consultation has been written REASON FOR HOSPITALIZATION: Patient is a 73 y/o lady admitted to the Medicine service for UTI, COVID 19 positive, and confusion. REASON FOR PSYCHIATRIC CURBSIDE CONSULTATION: Psychosis and confusion HISTORY OF PRESENT ILLNESS: At baseline patient has some psychosis and confusion. Recently she reported to her Nurse Practitioner that she sometimes wears a metal helmet due to Wi-fi and electromagnetic waves that caused her previous hemorrhagic stroke.. She arrived to the ED two days prior to admission with similar complaints; but left AMA. On the night prior to her curbside Psychiatric consult, she became agitated and was treated with Haldol and Ativan successfully. At the first ED visit, family was requesting placement. After her Haldol & Ativan, patient slept well. Appetite is okay. She takes her medications. Vital signs have been stable. She has had no additional agitation as her UTI is being treated. She was tearful at interview with Nurse Practitioner. Nurse Practitioner reports patient is Ox2. She refused CT of brain; however, a CT of the head from 02/17/2011 reveals a large left occipital hemorrhagic CVA. Daughter Report: Patient has a previous h/o delusions, agitation, and confusion as well as not allowing medical evaluation. PAST PSYCHIATRIC HISTORY: Chronic Psychiatric illness PAST MEDICAL/SURGICAL HISTORY: -asthma -large left intracranial hemorrhagic stroke -rheumatoid arthritis -tonsillectomy HOME MEDICATIONS: albuterol inhaler cromolyn inhaler HOSPITAL MEDICATIONS: -Rocephin IVPB -KCl ALLERGIES: Numerous (Reviewed in chart) suggestive of psychoneurosis SMOKING HISTORY: Never smoked ALCOHOL HISTORY: Never was an alcoholic DRUG HISTORY: Intermittent use of marijuana PAST FAMILY/SOCIAL HISTORY: Lives alone. No POA or Advanced Directive on file MEDICAL EVALUATION: Nurse Practitioner went over patient's CMP, CBC, TSH, UA, B12, and Folate level. DISCUSSION: Patient has a long, pre-morbid Psychiatric history that includes psychosis. She also has a premorbid Medical history of a 02/17/2011 CT of the head demonstrating a large left hemorrhagic stroke as well as a premorbid history of intermittent agitation and confusion. She may have an acute on chronic condition of having a UTI/COVID delirium superimposed over a baseline dementia that has improved with treatment. The Nurse Practitioner plans to order Vitamin D level, RPR, HIV, and Hepatitis Panel. Care Coordination consult for MMSE and possible starting placement. If I may be of additional help, please call to discuss the patient's clinical findings; and if needed, I am available for a more full formal consultation. [facility] Past Medical History Medical History Dementia Hx of completed stroke With chronic left parietal occipital encephalomalacia and moderate atrophy and chronic white matter changes Hx of intracranial hemorrhage Due to carotid artery dissection 2011 Hyperlipidemia Mild intermittent asthma without complication Psoriasis Surgical History Surgical History Surgical history unknown Family History Family History Mother Family history of cardiac disorder Cerebrovascular accident Patient's mother is Family history of heart disease in male family member before age 55 Sibling Hypertension Family history of allergic disorder Family history of malignant neoplasm Fa
[2023-06-07 04:00] VITALS: PULSE 68
[2023-06-07 05:16] LABS: Basophils Percent Auto 0.6 % (0.2-1.2); Eosinophils Percent Auto 0.6 % (0-4.4); Hematocrit 35.9 % (37.0-47.0); Hemoglobin 11.9 g/dL (12.0-15.0); Immature Granulocyte Absolute 0.02 K/mm3 (0.00-0.031); Immature Granulocyte Percent A 0.6 % (0-0.5); Immature Platelet Fraction Pct 5.8 % (0.9-11.2); Lymphocytes Absolute Auto 0.61 K/mm3 (0.9-3.2); Lymphocytes Percent Auto 17.1 % (18.3-44.2); Mean Corpuscular HGB Conc 33.1 g/dl (32-36); Mean Corpuscular Hemoglobin 29.6 pg (26-34); Mean Corpuscular Volume 89.3 fl (80-100); Mean Platelet Volume 10.7 fl (7.4-10.4); Monocytes Absolute Auto 0.7 K/mm3 (0.1-0.6); Neutrophils Absolute Auto 2.2 K/mm3 (1.3-6.7); Neutrophils Percent Auto 62.1 % (45.5-73.1); Platelet Count Result 148 k/mm3 (150-375); Red Blood Count 4.02 M/mm3 (4.2-5.4); White Blood Count 3.6 K/mm3 (4.5-10.0)
[2023-06-07 05:32] LABS: Alanine Aminotransferase 22 U/L (6-35); Albumin Level 3.1 g/dL (3.5-5.1); Alkaline Phosphatase 57 U/L (38-126); Anion Gap 7 mmol/L (4-12); Aspartate Amino Transferase 32 U/L (14-36); Bilirubin,Total 0.6 mg/dL (0.2-1.3); Blood Urea Nitrogen 13 mg/dL (7-17); Calcium 8.6 mg/dL (8.4-10.2); Carbon Dioxide 22 mmol/L (22-30); Chloride 108 mmol/L (98-107); Estimated CRCL calculation 58 ml/min; Estimated Glomerular Filt Rate > 60; Glucose 91 mg/dL (65-110); Sodium 137 mmol/L (137-145)
[2023-06-07 05:50] VITALS: BP 141/80; PULSE 70; RESP 20; TEMP 37.4; O2SAT 94
--- NOTE | 2023-06-07 07:04 | PM.DS ---
DS: Admitting Diagnosis Discharge Date 06/07/2023 0800 Admitting Diagnosis UTI Hypokalemia DS: Discharge Diagnosis Discharge Diagnosis (1) Acute delirium: Code(s): R41.0 - Disorientation, unspecified Status: Acute (2) Acute UTI: Code(s): N39.0 - Urinary tract infection, site not specified Status: Acute (3) COVID: Code(s): U07.1 - COVID-19 Status: Acute (4) Acute kidney injury: Code(s): N17.9 - Acute kidney failure, unspecified Status: Acute (5) Bizarre delusion: Code(s): F22 - Delusional disorders Status: Acute (6) Vegetarian: Code(s): Z78.9 - Other specified health status Status: Acute (7) Mild intermittent asthma without complication: Code(s): J45.20 - Mild intermittent asthma, uncomplicated Status: Acute Plan UTI Urine cultures ECOLI blood cultures NGTD Continue IV hydration. Monitor CBC, CMP watch for sepsis. Rocephin, convert to Cefdinir AMS secondary to metabolic encephalopathy, UTI, Dementia Vascular dementia exacerbated by UTI RPR, vitamin D, Hepatitis panel, HIV pending TSH WNL, B12 >1000, Folate 18.[address] Head HX of intracranial hemorrhage 2011 Spoke with Psychiatry will assist and follow may resolve after UTI Family reports previous psychiatric history I will not take medications or seek outreach assistant mini mental ordered COVID tested positive 05/29 Asymptomatic continue with supportive care Hypokalemia 3.0 replenished with 40 mcg x 2 doses continue to monitor and replenish HX Asthma: Resumed PRN Inhalers Code status: Full code per patient DVT prophylaxis: SCD Stress ulcer prophylaxis: Protonix 40 daily PT/OT notes: PT/OT pendings Disposition: Patient continued admission for confusion, bizarre, agitation secondary to UTI. Attempt to speak with daughter to get some baseline orientation but was not very helpful. Psychiatry assisting and will follow-up if needed when UTI is treated and if behavior continues. PT/OT ordered will likely need assistance from CC for discharge planning. Mini mental ordered. DS: Summary Hospital Course Hospital Course: Patient is a 73 year old female with a past medical history of RA, hemorrhagic stroke, asthma, dementia, and chronic psychiatric illness who presented to the ED with complaints of urinary symptoms and confusion. Urine culture did come back positive for E coli. Sensitivities as shows susceptibility to ceftriaxone. Ceftriaxone will be stopped and patient will place on cefdinir for the remainder of her treatment course. Currently patient does know the month, where she is, who she is, and current up-to-date events. Patient does have some illusions however seems to be stable at this time. Potassium was noted to be 3.0 today. Repletion has been given. Will have patient follow up on her potassium in 1 week with repeat labs. All other labs and vital signs are stable at this time. Patient does appear to be well it is stable for discharge. It is noted that patient was diagnosed with COVID 19 on 05/30/2023. Repeat swab was positive as well. Patient is stable with on room air asymptomatic. Psych was consulted however patient is not wanting to be entertained at this time. Patient states she will not have a psych eval or take any types of medications. It appears that the health history does lie however at this point patient is stable and most likely exacerbated from the UTI. Patient is stable for discharge. Plan has been and updated with patient agrees with this plan at this time. Status at Discharge Cognitive/behavioral status at discharge: Unknown baseline Time Spent with Patient Time attestation: Total time spent providing and/or coordinating discharge services: 48 minutes Specific discharge activities: Diagnostic testing, chart review, developing a treatment plan, education, care coordination
[2023-06-07 07:35] LABS: Magnesium 1.9 mg/dL (1.6-2.3)
[2023-06-07 08:00] VITALS: PULSE 73
[2023-06-07 08:05] VITALS: RESP 20; O2SAT 94
[2023-06-07] MEDS: POTASSIUM CHLORIDE 20 MEQ ER TABLET 40 MEQ PO ×2 (08:08→10:17)
--- NOTE | 2023-06-07 12:56 | PCOTNOTE ---
Attempted to see pt for OT evaluation however pt declines getting up at this time. Per RN, pt is going to d/c home this afternoon. Will continue to follow.
[2023-06-07 13:40] VITALS: BP 153/87; PULSE 79; RESP 20; TEMP 36.1; O2SAT 95
[2023-06-07 18:30] LABS: Rapid Plasma Reagin Non-Reactive (NonReactive)
[2023-06-09 13:59] LABS: HIV 1 RNA PCR NOT DETECTED (NOT DETECTED); HIV 1 RNA PCR NOT DETECTED copies/mL (NOT DETECTED)
== END 2023-06-07 14:30 | disposition home or self-care (01) ==
LOC: ANHED 06-05 00:20 → ANH2MED 06-05 02:03
PROVIDERS: Nurse Practitioner; Nurse Practitioner Family; Student in an Organized Health Care Education/Training Program; Admitting Provider Internal Medicine; Emergency Provider Emergency Medicine; PCP Family Medicine; Visit Provider Internal Medicine
DX: N17.9 Acute kidney failure, unspecified (principal); G93.41 Metabolic encephalopathy; U07.1 COVID-19; E87.6 Hypokalemia; N39.0 Urinary tract infection, site not specified; B96.20 Unspecified Escherichia coli [E. coli] as the cause of diseases classified elsewhere; F29 Unspecified psychosis not due to a substance or known physiological condition; F22 Delusional disorders; E78.5 Hyperlipidemia, unspecified; J45.20 Mild intermittent asthma, uncomplicated; M06.9 Rheumatoid arthritis, unspecified; I69.254 Hemiplegia and hemiparesis following other nontraumatic intracranial hemorrhage affecting left non-dominant side; F01.50 Vascular dementia, unspecified severity, without behavioral disturbance, psychotic disturbance, mood disturbance, and anxiety; L40.9 Psoriasis, unspecified; Z79.51 Long term (current) use of inhaled steroids; Z79.899 Other long term (current) drug therapy; Z11.4 Encounter for screening for human immunodeficiency virus [HIV]
CPT/HCPCS: 36415; 71045; 80053; 80074; 81001; 82306; 82607; 82746; 83605; 83735; 83880; 84145; 84484; 85025; 85055; 86592; 87040; 87077; 87086; 87088; 87186; 87536; 87637; 93005; 96361; 96365; 96366; 96372; 97161; 99199; 99285; A9270; G0378; J0696; J1630; J2060; J7030

== ENCOUNTER 2023-12-24 14:44 | Outpatient (CLI) | payer OTHER, SELFPAY ==
[2023-12-24 15:44] LABS: Hematocrit 45.3 % (37.0-47.0); Hemoglobin 14.6 g/dL (12.0-15.0); Mean Corpuscular HGB Conc 32.2 g/dl (32-36); Mean Corpuscular Hemoglobin 29.2 pg (26-34); Mean Corpuscular Volume 90.6 fl (80-100); Mean Platelet Volume 10.7 fl (7.4-10.4); Platelet Count Result 206 k/mm3 (150-375); Red Cell Distribution Width 13.9 % (11.5-14.5); White Blood Count 4.4 K/mm3 (4.5-10.0)
[2023-12-24 15:50] LABS: Add Urine Microscopic? NO; Appearance Urine Clear (Clear); Bilirubin Urine Negative (Negative); Blood Urine Negative (Negative); Color Urine Yellow (Yellow); Glucose Urine UA Negative (Negative); Ketones Urine Negative (Negative); Leukocyte Esterase Ur Negative LEU/UL (Negative); Nitrate Urine Negative (Negative); Protein Urine Negative (Negative); Specific Grav Ur 1.008 (1.001-1.035); Urobilinogen Urine 0.2 mg/dL (<2.0); pH Urine 7.5 (5.0-9.0)
[2023-12-24 15:55] LABS: Alanine Aminotransferase 31 U/L (6-35); Albumin Level 4.2 g/dL (3.5-5.1); Alkaline Phosphatase 102 U/L (38-126); Anion Gap 5 mmol/L (4-12); Aspartate Amino Transferase 45 U/L (14-36); Bilirubin,Total 1.2 mg/dL (0.2-1.3); Blood Urea Nitrogen 16 mg/dL (7-17); Calcium 9.6 mg/dL (8.4-10.2); Carbon Dioxide 32 mmol/L (22-30); Chloride 104 mmol/L (98-107); Estimated Glomerular Filt Rate > 60; Glucose 89 mg/dL (65-110); Potassium 3.9 mmol/L (3.4-5.0); Sodium 141 mmol/L (137-145)
== END 2023-12-24 14:45 | disposition home or self-care (01) ==
PROVIDERS: PCP Family Medicine; Visit Provider Family Medicine
DX: R41.0 Disorientation, unspecified (principal); E87.6 Hypokalemia; F22 Delusional disorders; F03.90 Unspecified dementia, unspecified severity, without behavioral disturbance, psychotic disturbance, mood disturbance, and anxiety; N39.0 Urinary tract infection, site not specified; U07.1 COVID-19; M06.9 Rheumatoid arthritis, unspecified; Z00.00 Encounter for general adult medical examination without abnormal findings
CPT/HCPCS: 36415; 80053; 81003; 85027; 87086

== ENCOUNTER 2024-07-01 16:01 | Outpatient (CLI) | payer MEDICARE, SELFPAY ==
--- OUTSIDE RECORDS SUMMARY | 2024-07-01 16:06 | XMS_ITS | Encounter Summary ---
Author Organization [facility] [address] [place] [address] Care Team Providers Care Aesthetics Instructor Name Role Phone Unavailable Primary Care Provider Unavailabl e Prior Encounters Date Type Department Care Team Description 2022 11:00 AM CDT Office Visit [facility] [address] [place] [address] Krunal Medina DDS 03/03/2019 Converted CPS Chart Documents [facility] [address] [place] [address] <No scans attached> 03/03/2019 Converted 13x Documents [facility] [address] [place] [address] <No scans attached> Plan of Treatment Not on file Procedures Procedure Name Priority Date/Time Associated Diagnosis Comments PERIODIC ORAL EVALUATION - ESTABLISHED PATIENT Routine 2022 11:00 AM CDT BITEWINGS - FOUR RADIOGRAPHIC IMAGES Routine 2022 11:00 AM CDT PROPHYLAXIS - ADULT Routine 2022 1 1:00 AM CDT PERIODIC ORAL EVALUATION - ESTABLISHED PATIENT Routine 07/22/2020 2:00 AM CDT ORAL HYGIENE INSTRUCTIONS Routine 2020 2:00 AM CDT PROPHYLAXIS - ADULT Routine 07/22/2020 2 :00 AM CDT CANCELLED APPOINTMENT Routine 06/24/2020 2:00 AM CDT CANCELLED APPOINTMENT Routine 05/26/2019 2:00 AM CDT 31 CROWN PORC POST Routine 10/25/2018 2: 00 AM CDT 30 CROWN PORC POST Routine 10/25/2018 2: 00 AM CDT 18 [facility] MADE CROWN POST Routine 10/25/2018 2:00 AM CDT 13 MODB ONLAY PORCELAIN 4 KAMINSKI Routine 10/25/2018 2:00 AM CDT 2 MODB ONLAY PORCELAIN 4 KAMINSKI Routine 10/25/2018 2:00 AM CDT 15 MOL ONLAY PORCELAIN 3 KAMINSKI Routine 10/25/2018 2:00 AM CDT 14 MODL CEREC ONLAY 4 SURF Routine 10/25/2018 2:00 AM CDT 19 CROWN PFM POST Routine 10/25/2018 2:0 0 AM CDT PROPHYLAXIS - ADULT Routine 10/25/2018 2 :00 AM CDT COMPREHENSIVE ORAL EVALUATION - NEW OR ESTABLISHED PATIENT Routine 10/25/2018 2:00 AM CDT PANORAMIC RADIOGRAPHIC IMAGE Routine 10/25/2018 2:00 AM CDT INTRAORAL - COMPREHENSIVE SERIES OF RADIOGRAPHIC IMAGES Routine 10/25/2018 2:00 AM CDT INTRAORAL PHOTO Routine 10/25/2018 2:00 AM CDT INTRAORAL PHOTO Routine 10/25/2018 2:00 AM CDT INTRAORAL PHOTO Routine 10/25/2018 2:00 AM CDT INTRAORAL PHOTO Routine 10/25/2018 2:00 AM CDT 3 BL COMPOSITE FILLING Routine 9 2:00 AM CDT 28 O COMPOSITE FILLING Routine 9 2:00 AM CDT 21 O COMPOSITE FILLING Routine 9 2:00 AM CDT 20 O COMPOSITE FILLING Routine 9 2:00 AM CDT 5 O COMPOSITE FILLING Routine 10/25/2018 2:00 AM CDT 4 O COMPOSITE FILLING Routine 10/25/2018 2:00 AM CDT CANCELLED APPOINTMENT Routine 09/10/2018 2:00 AM CDT Visit Diagnoses Not on file Insurance PPO
--- OUTSIDE RECORDS SUMMARY | 2024-07-01 16:06 | XMS_ITS | Clinical Summary ---
Author Organization [facility] [employer] Address [facility] [place] [address] Care Team Providers Care Bus Washer Name Role Phone Unavailable Primary Care Provider Unavailabl e Source Comments [facility] [employer],non-owned Affiliates and Associated Physician Practices is amultiple site organization consisting of ambulatory clinics and hospital sitesin [place], [place], [place] and [place]. This disclosure is being madepursuant to the Care Everywhere program and may not contain all information available regarding this patient. Last updated 17.[facility] [employer] Allergies Active Allergy Reactions Criticality Noted Date Comments Ipratropium Unknown 05/29/2023 Nebivolol Other 05/29/2023 Unknown Contrast-Iodinated Agents Fo r Ct/Other Unknown 05/29/2023 Levetiracetam Other 05/29/2023 Unknown Methotrexate Unknown 05/29/2023 Morphine Nausea and/or Vomiting 05/29/2023 Nsaids Unknown 05/29/2023 Montelukast Unknown 05/29/2023 Theophylline Other 05/29/2023 Unknown Guaifenesin Unknown 05/29/2023 Social History Tobacco Use Types Packs/Day Years Used Date Smoking Tobacco: Never Assessed Comments Unknown Sex and Gender Information Value Date Recorded Sex Assigned at Not on file Legal Sex Female 8:37 AM CDT Gender Identity Not on file Sexual Orientation Not on file Last Filed Vital Signs Vital Sign Reading Time Taken Comments Blood Pressure 134/83 05/29/2023 2:25 PM CDT Pulse 65 05/29/2023 2:25 PM CDT Temperature 36.8 C (98.3 F) 05/29/2023 2:25 PM CDT Respiratory Rate 20 05/29/2023 2:25 PM CDT Oxygen Saturation 100% 05/29/2023 2:25 PM CDT Inhaled Oxygen Concentration - - Weight 68 kg (150 lb) 05/29/2023 8:42 AM CDT Height - - Body Mass Index - - Plan of Treatment Health Maintenance Due Date Last Done Comments BONE DENSITY TESTING 1950 COLOGUARD (AGES 45-75) - COL ON CA SCREENING 1950 COLON MONITORING 1950 COLONOSCOPY - COLON CA SCREENING 1950 CT COLONOGRAPHY - COLON CA SCREENING 1950 Colorectal Cancer Screening 1950 FIT - COLON CA SCREENING 1950 FLEX SIG - COLON CA SCREENING 1950 LIPID TESTING 1950 MAMMOGRAM 1950 MEDICARE AWV 12 MONTHS 1950 HEPATITIS C SCREENING 05/27/1968 DTAP/TDAP/TD VACCINES (1 - Tdap) 1969 PNEUMOCOCCAL VACCINE 50+ (1 of 1 - PCV) 2000 ZOSTER VACCINE (1 of 2) 2000 COVID-19 VACCINE (1 - 2023-2 5 season) 2023 DEPRESSION SCREENING 02/13/2024 INFLUENZA VACCINE (Season Ended) 2024 Respiratory Syncytial Virus (RSV) Vaccine Pt: or over 60 yrs (1 - 1-dose 75+ series) 2025 HEPATITIS B VACCINE Aged Out No longe r eligible based on patient's age to complete this topic HIB VACCINE Aged Out No longer eligi ble based on patient's age to complete this topic HPV VACCINE Aged Out No longer eligi ble based on patient's age to complete this topic MENINGOCOCCAL (Group B) VACC INE SHARED DECISION-MAKING Aged Out No longer eligibl e based on patient's age to complete this topic MENINGOCOCCAL GROUPS A/C/Y/W VACCINE Aged Out No longer eligible b ased on patient's age to complete this topic Insurance MEDICARE [facility] MEDICARE
--- OUTSIDE RECORDS SUMMARY | 2024-07-01 16:06 | XMS_ITS | Clinical Summary ---
Author Organization [employer] [facility] Address [address] Attn: Epic Prelude ADT [place] [address] Care Team Providers Care Dispatcher Refinery Name Role Phone Unavailable Primary Care Provider Unavailabl e Medications predniSONE (DELTASONE) 10 mg tablet Take 1 Tablet (10 mg) by mouth ONCE daily FOR 5 DAYS WITH ASTHMA FLARES. 20 Tablet 12/10/2021 1:38 PM CDT 2 Active Proventil HFA 90 mcg/actuation inhaler INHALE 1 PUFF EVERY 4 HOURS NEEDED FOR SHORTNESS OF BREATH OR WHEEZING 6.7 Gram 8 07/29/2022 1:57 PM CDT 2 Active albuterol (PROVENTIL,PATRICIA [place]) 2.5 mg /3 mL (0.083 %) Solution for Nebulization Inhale 3 mL (2.5 mg) via nebulizer every 4-6 hours as needed for shortness of breath or wheezing. 75 mL 2 05/13/2022 2:08 PM CDT 3 Active cromolyn (INTAL) 20 mg/2 mL Solution for Nebulization Take 2 mL (20 mg) by inhalation 2 times daily. 120 mL 04/10/2022 4:02 PM ASSISTANT CREDIT MANAGER 3 Active predniSONE (DELTASONE) 10 mg tablet Take 1 Tablet (10 mg) by mouth daily. 14 Tablet 01/12/2023 2:03 PM ASSISTANT CREDIT MANAGER 3 Active albuterol sulfate HFA 90 mcg/actuation aerosol inhaler INHALE 1 PUFF BY MOUTH EVERY 4 HOURS NEEDED FOR SHORTNESS OF BREATH 6.7 Gram 8 03/01/2024 2:58 PM ASSISTANT CREDIT MANAGER 4 Active albuterol (PROVENTIL,PATRICIA WE[place]) 2.5 mg /3 mL (0.083 %) Solution for Nebulization Inhale 2.5 mg (3 mL) via nebulizer every 4-6 hours as needed for shortness of breath or wheezing 180 mL 8 06/07/2024 2:51 PM CDT 4 Active cromolyn (INTAL) 20 mg/2 mL Solution for Nebulization INHALE 2 ML BY NEBULIZER TWICE DAILY. 240 mL 6 06/07/2024 2:51 PM CDT 4 Active albuterol sulfate HFA 90 mcg/actuation aerosol inhaler Take 1 Puff by inhalation every 4 hours as needed. 6.7 Gram 1 06/07/2024 2:51 PM CDT 5 Active albuterol sulfate HFA 90 mcg/actuation aerosol inhaler ADMINISTER 1 PUFF BY MOUTH EVERY 4 HOURS NEEDED FOR SHORTNESS OF BREATH 6.7 Gram 1 05/15/2024 4:06 PM CDT 5 025 Discontin ued(Reord er) Social History Tobacco Use Types Packs/Day Years Used Date Smoking Tobacco: Never Assessed Comments Unknown Sex and Gender Information Value Date Recorded Sex Assigned at Not on file Legal Sex Female 3:27 PM CDT Gender Identity Not on file Sexual Orientation Not on file Plan of Treatment Health Maintenance Due Date Last Done Comments DTAP/TDAP/TD VACCINES (1 - Tdap) 1969 BREAST CANCER SCREENING 1990 COLORECTAL SCREENING 06/02/1995 Colorectal Cancer Screening 06/02/1995 FIT-DNA Q 3 years 06/02/1995 FIT/FOBT Q 1 year 06/02/1995 Flex Sig/CT Colonography Q 5 years 06/02/1995 PNEUMOCOCCAL VACCINE 50+ YEARS (1 of 1 - PCV) 06/02/19 ZOSTER VACCINE (1 of 2) 2000 OSTEOPOROSIS SCREENING 06/02/2015 INFLUENZA VACCINE (#1) 2023 RSV VACCINE (60+ or ) (1 - 1-dose 75+ series) 2025 Insurance #[address] [place] [address] RX [employer] Medicare Part D #[address] [place] [address]
--- OUTSIDE RECORDS SUMMARY | 2024-07-01 16:06 | XMS_ITS | Clinical Summary ---
Author Organization [facility] Address [address] [place] [address] Care Team Providers Care Director Metabolism Name Role Phone Unavailable Primary Care Provider Unavailabl e Medications albuterol 2.5 mg /3 mL (0.083 %) nebulizer solution Inhale 3 mL (2.5 mg) via nebulizer every 4-6 hours as needed for shortness of breath or wheezing. 3 Active Proventil HFA 90 mcg/actuation inhaler INHALE 1 PUFF EVERY 4 HOURS NEEDED FOR SHORTNESS OF BREATH OR WHEEZING 2 Active cromolyn (INTAL) 20 mg/2 mL nebulizer solution Inhale 20 mg in the morning and 20 mg in the evening. 3 Active predniSONE (DELTASONE) 10 mg tablet Take 10 mg by mouth 1 (one) time each day. 2 Active Active Problems Problem Noted Date Diagnosed Date CKD (chronic kidney disease) stage 3, GFR 30-59 ml/min 11/11/2020 Social History Tobacco Use Types Packs/Day Years Used Date Smoking Tobacco: Never Assessed Comments Unknown Sex and Gender Information Value Date Recorded Sex Assigned at Not on file Legal Sex Female 1:01 AM PST Gender Identity Not on file Sexual Orientation Not on file Plan of Treatment Health Maintenance Due Date Last Done Comments Dental X-Ray: Panoramic 09/26/2022 09/26/2019, 10/25 Dental Oral Exam 12/02/2022 2022, 11/2020, 10/25/2018 Dental Prophylaxis 12/02/2022 2022, 0 07/22/2020, 10/25/2018 Dental X-Ray: Bitewings 12/02/2022 2022 Dental X-Ray: Full Mouth 12/20/2023 12/18/2020, 10/13 Meningococcal B Vaccine Aged Out No l onger eligible based on patient's age to complete this topic Procedures Procedure Name Priority Date/Time Associated Diagnosis Comments PROPHYLAXIS - ADULT Routine 2022 1 1:00 AM CDT PERIODIC ORAL EVALUATION - ESTABLISHED PATIENT Routine 2022 11:00 AM CDT PANORAMIC RADIOGRAPHIC IMAGE Routine 10/25/2018 2:00 AM CDT INTRAORAL - COMPREHENSIVE SERIES OF RADIOGRAPHIC IMAGES Routine 10/25/2018 2:00 AM CDT from Last 3 Months or Most Recently Relevant to Health Maintenance Insurance PPO
[2024-07-01 16:55] LABS: Hematocrit 44.8 % (37.0-47.0); Hemoglobin 13.8 g/dL (12.0-15.0); Mean Corpuscular HGB Conc 30.8 g/dl (32-36); Mean Corpuscular Hemoglobin 28.6 pg (26-34); Mean Corpuscular Volume 92.9 fl (80-100); Mean Platelet Volume 10.5 fl (7.4-10.4); Platelet Count Result 206 k/mm3 (150-375); Red Blood Count 4.82 M/mm3 (4.2-5.4); Red Cell Distribution Width 13.2 % (11.5-14.5)
[2024-07-01 17:05] LABS: Alanine Aminotransferase 35 U/L (6-35); Albumin Level 4.3 g/dL (3.5-5.1); Alkaline Phosphatase 107 U/L (38-126); Anion Gap 6 mmol/L (4-12); Aspartate Amino Transferase 52 U/L (14-36); Bilirubin,Total 1.1 mg/dL (0.2-1.3); Blood Urea Nitrogen 21 mg/dL (7-17); Calcium 9.3 mg/dL (8.4-10.2); Carbon Dioxide 30 mmol/L (22-30); Chloride 106 mmol/L (98-107); Estimated Glomerular Filt Rate 55; Glucose 89 mg/dL (65-110); Potassium 4.2 mmol/L (3.4-5.0); Sodium 142 mmol/L (137-145)
== END 2024-07-01 16:02 | disposition home or self-care (01) ==
LOC: ANHLAB 16:04
PROVIDERS: PCP Family Medicine; Visit Provider Family Medicine
DX: M06.9 Rheumatoid arthritis, unspecified (principal); F03.90 Unspecified dementia, unspecified severity, without behavioral disturbance, psychotic disturbance, mood disturbance, and anxiety; Z00.00 Encounter for general adult medical examination without abnormal findings; J45.909 Unspecified asthma, uncomplicated
CPT/HCPCS: 36415; 80053; 85027

== ENCOUNTER 2024-12-03 12:03 | Emergency (ER) | payer MEDICARE, SELFPAY ==
[2024-12-03 11:56] VITALS: BP 157/93; PULSE 105; RESP 17; TEMP 36.6; O2SAT 98
--- NOTE | 2024-12-03 12:39 | PC.NURSE ---
Dr. Oneil at bedside talking with pt.
--- NOTE | 2024-12-03 12:46 | ECG_ITS ---
Test Date: 2024-12-03 13:01:45 Measurements Intervals [place] Rate: 97 P: 63 IN: 185 QRS: -77 QRSD: 137 T: 63 QT: 387 QTc: 493 Interpretive Statements SINUS RHYTHM WITH OCCASIONAL SUPRAVENTRICULAR PREMATURE COMPLEXES RIGHT BUNDLE BRANCH BLOCK LEFT ANTERIOR FASCICULAR BLOCK LEFT VENTRICULAR HYPERTROPHY AND ST-T CHANGE CANNOT R/O SEPTAL INFARCT, AGE INDETERMINATE ABNORMAL ECG No previous ECG available for comparison Electronically Signed On 12-03-2024 13:16:48 CDT by Isak Hernandez D.O.
[2024-12-03 13:09] LABS: Hematocrit 43.0 % (37.0-47.0); Hemoglobin 13.9 g/dL (12.0-15.0); Immature Granulocyte Percent A 0.3 % (0-0.5); Lymphocytes Absolute Auto 0.62 K/mm3 (0.9-3.2); Mean Corpuscular HGB Conc 32.3 g/dl (32-36); Mean Corpuscular Hemoglobin 29.3 pg (26-34); Mean Corpuscular Volume 90.5 fl (80-100); Nucleated Red Blood Cells Absolute Auto 0.000 K/mm3 (0.0-0.012); Nucleated Red Blood Cells Perc 0.0 % (0.0-0.2); Platelet Count Result 171 k/mm3 (150-375); Red Blood Count 4.75 M/mm3 (4.2-5.4); White Blood Count 7.6 K/mm3 (4.5-10.0)
[2024-12-03 13:20] LABS: Alanine Aminotransferase 38 U/L (6-35); Albumin Level 4.3 g/dL (3.5-5.1); Alkaline Phosphatase 113 U/L (38-126); Anion Gap 9 mmol/L (4-12); Aspartate Amino Transferase 49 U/L (14-36); Bilirubin,Total 1.2 mg/dL (0.2-1.3); Blood Urea Nitrogen 29 mg/dL (7-17); Calcium 9.2 mg/dL (8.4-10.2); Carbon Dioxide 24 mmol/L (22-30); Chloride 105 mmol/L (98-107); Estimated CRCL calculation 42 ml/min; Estimated Glomerular Filt Rate 55; Glucose 135 mg/dL (65-110); Potassium 3.3 mmol/L (3.4-5.0); Sodium 138 mmol/L (137-145); Total Protein 7.2 g/dL (6.3-8.2)
--- NOTE | 2024-12-03 13:45 | PC.NURSE ---
Recieved a phone call from the pts daughter to see what the plan was for the pt and how her mother was doing. Confirmed that she was on the pts HPI. All questions were answered by this RN. Pt was notified that her daughter had called.
[2024-12-03 14:34] VITALS: BP 143/91; PULSE 100; RESP 16; O2SAT 98
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
[2024-12-03 14:58] VITALS: BP 143/67; PULSE 96; RESP 18; O2SAT 97
== END 2024-12-03 15:00 | disposition home or self-care (01) ==
PROVIDERS: Emergency Provider Emergency Medicine; PCP Family Medicine
DX: F41.9 Anxiety disorder, unspecified (principal); J45.909 Unspecified asthma, uncomplicated; F03.90 Unspecified dementia, unspecified severity, without behavioral disturbance, psychotic disturbance, mood disturbance, and anxiety; E78.5 Hyperlipidemia, unspecified; L40.9 Psoriasis, unspecified
CPT/HCPCS: 36415; 80053; 85025; 93005; 99283

== ENCOUNTER 2025-01-09 13:57 | Outpatient (CLI) | payer MEDICARE, SELFPAY ==
--- OUTSIDE RECORDS SUMMARY | 2025-01-09 14:04 | XMS_ITS | Encounter Summary ---
Author Organization [facility] Health Address [address] [place] [address] Care Team Providers Care French Professor Name Role Phone Unavailable Primary Care Provider Unavailabl e Prior Encounters Date Type Department Care Team Description 2022 11:00 AM CDT Office Visit [facility] [address] [place] [address] Krunal Medina, ADELINA 03/03/2019 Converted CPS Chart Documents [facility] [address] [place] [address] <No scans attached> 03/03/2019 Converted 13x Documents [facility] [address] [place], [place] [address] <No scans attached> Plan of Treatment Not [...]
--- OUTSIDE RECORDS SUMMARY | 2025-01-09 14:04 | XMS_ITS | Clinical Summary ---
Author Organization [facility] Address [address] [place] [address] Care Team Providers Care Service Coordinator Elderly Facility Name Role Phone Unavailable Primary Care Provider [...] 09/26/2019, 10/25 Dental Oral Exam 12/02/2022 2022, 07/22/2020, 10/25/2018 Dental Prophylaxis 12/02/2022 2022, 07/22/2020 , 10/25/2018 Dental X-Ray: Bitewings 12/02/2022 2022 Dental X-Ray: Full Mouth 12/20/2023 12/18/2020, 10/13 Procedures Procedure Name Priority Date/Time Associated Diagnosis [...]
--- OUTSIDE RECORDS SUMMARY | 2025-01-09 14:05 | XMS_ITS | Clinical Summary ---
Author Organization [facility] Address [address] Attn: Epic Prelude ADT [place] [address] Care Team Providers Care Neurology Physician Assistant Name Role Phone Unavailable Primary Care Provider [...] 07/29/2022 1:57 PM CDT 2 Active albuterol (PROVENTIL,VENTOL IN) 2.5 mg /3 mL (0.083 %) Solution for Nebulization Inhale 3 mL (2.5 mg) via nebulizer every 4-6 hours as needed for shortness of breath or wheezing. 75 mL 2 05/13/2022 2:08 PM CDT 3 Active cromolyn (INTAL) 20 mg/2 mL Solution for Nebulization Take 2 mL (20 mg) by inhalation 2 times daily. 120 mL 04/10/2022 4:02 PM TEST GRADER 3 Active predniSONE (DELTASONE) 10 mg tablet Take 1 Tablet (10 mg) by mouth daily. 14 Tablet 01/12/2023 2:03 PM TEST GRADER 3 Active albuterol sulfate HFA 90 mcg/actuation aerosol inhaler INHALE 1 PUFF BY MOUTH EVERY 4 HOURS NEEDED FOR SHORTNESS OF BREATH 6.7 Gram 8 03/01/2024 2:58 PM TEST GRADER 4 Active cromolyn (INTAL) 20 mg/2 mL Solution for Nebulization INHALE 2 ML BY NEBULIZER TWICE DAILY. 240 mL 6 06/07/2024 2:51 PM CDT 4 Active albuterol sulfate HFA 90 mcg/actuation aerosol inhaler Take 1 Puff by inhalation every 4 hours as needed. 6.7 Gram 1 08/02/2024 2:03 PM CDT 5 Active predniSONE (DELTASONE) 10 mg tablet Take 1 Tablet (10 mg) by mouth daily. 14 Tablet 07/05/2024 3:44 PM CDT 5 Active albuterol (PROVENTIL,VENTOL IN) 2.5 mg /3 mL (0.083 %) Solution for Nebulization Inhale 2.5 mg (3 mL) via nebulizer every 4-6 hours as needed for shortness of breath or wheezing 180 mL 8 12/06/2024 2:40 PM CDT 5 Active albuterol sulfate 90 mcg/Actuation inhaler INHALE 1 PUFF BY MOUTH EVERY 4 HOURS NEEDED FOR SHORTNESS OF BREATH 6.7 Gram 3 12/29/2024 3:09 PM TEST GRADER 5 Active Encounters Date Type Department Care Team Description 10/21/2024 External Device Data [facility] ABSTRACTION Provider, Abstract from Last 3 Months Social History Tobacco Use Types Packs/Day Years [...] 2000 OSTEOPOROSIS SCREENING 06/02/2015 INFLUENZA VACCINE (#1) 2024 RSV VACCINE (60+ or ) (1 - 1-dose 75+ series) [address] [place] [id number] RX [employer] Medicare Part D [address] [place] [id number]
--- OUTSIDE RECORDS SUMMARY | 2025-01-09 14:05 | XMS_ITS | Clinical Summary ---
Author Organization [facility] Address [facility] [place] [address] Care Team Providers Care Fisher Sponge Hooking Name Role Phone Unavailable Primary Care Provider Unavailabl e Source Comments [facility],non-owned Affiliates and Associated Physician Practices is amultiple site organization consisting of ambulatory clinics and hospital sitesin [place], [place], [place] and [place]. This disclosure is being madepursuant to the Care Everywhere program and may not contain all information available regarding this patient. Last updated 17.[facility] Allergies Active Allergy Reactions Criticality Noted Date [...] 2000 ZOSTER VACCINE (1 of 2) 2000 DEPRESSION SCREENING 02/13/2024 COVID-19 VACCINE (1 - 2024-2 6 season) 2024 INFLUENZA VACCINE (#1) 2024 Respiratory Syncytial Virus (RSV) Vaccine Pt: [...] age to complete this topic Insurance MEDICARE [facility] MEDICARE [facility] Care Address: [address] [place] [address]
[2025-01-09 14:56] LABS: Hematocrit 44.1 % (37.0-47.0); Hemoglobin 14.0 g/dL (12.0-15.0); Immature Granulocyte Percent A 0.2 % (0-0.5); Lymphocytes Absolute Auto 0.79 K/mm3 (0.9-3.2); Mean Corpuscular HGB Conc 31.7 g/dl (32-36); Mean Corpuscular Hemoglobin 28.8 pg (26-34); Mean Corpuscular Volume 90.7 fl (80-100); Nucleated Red Blood Cells Absolute Auto 0.000 K/mm3 (0.0-0.012); Nucleated Red Blood Cells Perc 0.0 % (0.0-0.2); Platelet Count Result 176 k/mm3 (150-375); Red Blood Count 4.86 M/mm3 (4.2-5.4); White Blood Count 4.9 K/mm3 (4.5-10.0)
[2025-01-09 15:15] LABS: Alanine Aminotransferase 38 U/L (6-35); Albumin Level 4.3 g/dL (3.5-5.1); Alkaline Phosphatase 99 U/L (38-126); Anion Gap 4 mmol/L (4-12); Aspartate Amino Transferase 50 U/L (14-36); Bilirubin,Total 1.2 mg/dL (0.2-1.3); Blood Urea Nitrogen 23 mg/dL (7-17); Calcium 9.6 mg/dL (8.4-10.2); Carbon Dioxide 30 mmol/L (22-30); Chloride 106 mmol/L (98-107); Cholesterol 238 mg/dL (0-200); Estimated Glomerular Filt Rate 52; Glucose 92 mg/dL (65-110); Potassium 3.9 mmol/L (3.4-5.0); Sodium 140 mmol/L (137-145); Total Protein 7.2 g/dL (6.3-8.2); Triglycerides 68 mg/dL (<150)
[2025-01-09 16:08] LABS: Vitamin B12 734.0 pg/mL (239-931)
[2025-01-09 18:38] LABS: HDL Direct 121 mg/dL
== END 2025-01-09 13:58 | disposition home or self-care (01) ==
LOC: ANHLAB 13:57
PROVIDERS: PCP Family Medicine; Visit Provider Family Medicine
DX: R74.8 Abnormal levels of other serum enzymes (principal); F22 Delusional disorders; R51.9 Headache, unspecified; F03.A2 Unspecified dementia, mild, with psychotic disturbance; R06.00 Dyspnea, unspecified; J45.20 Mild intermittent asthma, uncomplicated; Z00.00 Encounter for general adult medical examination without abnormal findings; Z79.899 Other long term (current) drug therapy
CPT/HCPCS: 36415; 80053; 80061; 82306; 82607; 85025

== ENCOUNTER 2025-02-08 09:35 | Emergency (ER) | payer MEDICARE, SELFPAY ==
[2025-02-08] VITALS (8 sets, daily range): BP systolic 120–140; BP diastolic 89–92; PULSE 82–97; RESP 14–24; TEMP 36.4–36.9; O2SAT 95–99
--- NOTE | ~2025-02-08 | XR_ITS ---
Examination: XR chest 1V portable Clinical History: SOB Comparison: 06/06/2023 Technique: Portable AP Findings: Heart size normal. Hyperinflation with chronic interstitial changes. Mildly increased interstitial markings. No acute bony abnormality. IMPRESSION: 1. Mild interstitial pulmonary edema and/or pneumonitis not excluded, superimposed upon emphysema. Reviewed, dictated and finalized at location R. NESS SYSTEM CONSULTANT IMPRESSION: 1. Mild interstitial pulmonary edema and/or pneumonitis not excluded, superimp osed upon emphysema.
[2025-02-08] MEDS: ALBUTEROL SULFATE NEB 2.5 MG/3 ML INH 5 MG INHALATION (09:42)
--- NOTE | 2025-02-08 09:47 | ED_ITS ---
HPI - General Adult General Chief complaint: Shortness of Breath/Dyspnea Stated complaint: SOB Time Seen by Provider: 02/08/25 09:43 History of Present Illness HPI narrative: 74-year-old female presenting to the emergency department for evaluation for worsening shortness of breath that started yesterday. Patient does have history asthma. Patient denies a smoking history. Patient is on room air at home. Patient does have history high cholesterol, hypertension, chronic kidney disease, dementia, schizophrenia. Patient was found to be saturating 94% on room air with increased work of breathing when EMS arrived. Patient was treated with a DuoNeb EN route along with IV Mag, upon arrival to the emergency department patient does feel improved. Related Data Allergies Allergy/AdvReac Type Severity Reaction Status Date / Time aspirin Allergy Unknown high dose Verified 02/08/25 09:55 aspirin fluticasone Allergy Unknown unknown Verified 02/08/25 09:55 homatropine (From [place]) Allergy Unknown Unknown Verified 02/08/25 09:55 hydrocodone (From [place]) Allergy Unknown Unknown Verified 02/08/25 09:55 ibuprofen Allergy Unknown high dose Verified 02/08/25 09:55 ibuprofen Iodinated Contrast Media Allergy Unknown Unknown Verified 02/08/25 09:55 iodine Allergy Unknown Unknown Verified 02/08/25 09:55 levetiracetam Allergy Unknown Unknown Verified 02/08/25 09:55 meperidine Allergy Unknown unknown Verified 02/08/25 09:55 methotrexate Allergy Unknown Unknown Verified 02/08/25 09:55 Milk Containing Products Allergy Unknown Unknown Verified 02/08/25 09:55 (Dairy) montelukast Allergy Unknown unknown Verified 02/08/25 09:55 morphine Allergy Unknown unknown Verified 02/08/25 09:55 mushroom Allergy Unknown unknown Verified 02/08/25 09:55 naproxen Allergy Unknown unknown Verified 02/08/25 09:55 nebivolol Allergy Unknown unknown Verified 02/08/25 09:55 nitrous oxide Allergy Unknown Unknown Verified 02/08/25 09:55 pseudoephedrine Allergy Unknown unknown Verified 02/08/25 09:55 salmeterol Allergy Unknown unknown Verified 02/08/25 09:55 sulfite Allergy Unknown unknown Verified 02/08/25 09:55 theophylline Allergy Unknown unknown Verified 02/08/25 09:55 yellow dye Allergy Unknown unknown Verified 02/08/25 09:55 Sulfa (Sulfonamide AdvReac Unknown Wheezing Verified 02/08/25 09:55 Antibiotics) Review of Systems 2 Review of Systems: All systems reviewed & are unremarkable except as noted in HPI and below PMFSH Past Medical History Medical History Dementia Hx of completed stroke With chronic left parietal occipital encephalomalacia and moderate atrophy and chronic white matter changes Hx of intracranial hemorrhage Due to carotid artery dissection 2011 Hyperlipidemia Mild intermittent asthma without complication Psoriasis Surgical History Surgical History Surgical history unknown Family History Family History Mother Family history of cardiac disorder Cerebrovascular accident Patient's mother is Family history of heart disease in male family member before age 55 Sibling Hypertension Family history of allergic disorder Family history of malignant neoplasm Father Family history of Parkinson's disease Family history of renal failure Patient's father is Asthma Social History Social History Social History: The patient lives her own home. 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 Smoking status: Never smoker Alcohol intake: never Substance use: never Substance use type: does not use Lack of Transportation: YES Lack of Food: Never True Current Housing: I Have Housing Concerned About Future Housing: No Difficulty Paying Gas/Electric Bills: No Difficulty Paying for Meds: No Currently Unemployed: No Education: Bachelor's Degree Difficulty w/ Childcare or Family Care: No Living arrangements: alone Occupation/Education: retired Gender identity (if verbalized by the patient): Female Sexual Orientation (if Verbalized by the Patient): Straight or Heterosexual Spiritual care concerns: No Agree to blood products: Yes Exam 2 Narrative: APPEARANCE: Well appearing, no pain, no distress, well-nourished. HEAD: normocephalic, atraumatic. EYES: PERRLA/EOMI, conjunctivae clear. NOSE: Normal no drainage EARS:TMS clear with good light reflex. THROAT: Pharynx clear, no exudate. NECK: Supple. No adenopathy, no masses. RESPIRATORY: Airway patent, respirations nonlabored. Clear to auscultation bilaterally, no rales, rhonchi, wheezing. CARDIOVASCULAR: Regular rate and rhythm without murmurs rubs or gallops. ABDOMINAL: Soft, nontender, nondistended, normal bowel sounds MUSCULOSKELETAL: Moves all extremities. Strength/ROM intact, No edema, No calf tenderness. NEURO: Alert. Cranial nerves II through XII intact. Good gait. Good coordination SKIN: Warm, dry. Normal Color Course Vital Signs Vital signs: Vital Signs Temperature 97.6 F 02/08/25 09:35 Pulse Rate 94 02/08/25 09:35 Respiratory Rate 20 02/08/25 09:35 Blood Pressure 137/89 02/08/25 09:35 Pulse Oximetry 99 02/08/25 09:35 Oxygen Delivery Room Air 02/08/25 09:35 Temperature 98.4 F 02/08/25 12:45 Pulse Rate 96 02/08/25 12:45 Respiratory Rate 24 H 02/08/25 12:45 Blood Pressure 140/89 02/08/25 12:45 Pulse Oximetry 98 02/08/25 12:45 Oxygen Delivery Room Air 02/08/25 10:00 [facility] Narrative Medical decision making narrative: [age] old female presents emergency department for evaluation for shortness of breath. Patient suspects she was having an asthma exacerbation. Upon arrival emergency department patient was improved after the breathing treatments EN route. Patient is currently afebrile with no leukocytosis hemoglobin of 13.5. No significant acute abnormalities on her CMP patient was negative for influenza RSV and for COVID chest x-ray shows no acute cardiopulmonary abnormality. On re-evaluation patient continues to feel improved. Patient is saturating well on room air and is not tachycardic. Patient was able to ambulate in the emergency department with a stable pulse ox. Differential Diagnosis Differential Diagnosis: COVID, RSV and influenza a, COPD, CHF, asthma, pneumonia Lab Data [facility] Lab Attestation statement: I personally reviewed the patient's lab results. 02/08/25 10:03 02/08/25 10:03 Labs: Lab Results 02/08/25 Range/Units 10:03 WBC 5.3 (4.5-10.0) K/mm3 RBC 4.58 (4.2-5.4) M/mm3 Hgb 13.5 (12.0-15.0) g/dL Hct 41.4 (37.0-47.0) % MCV 90.4 (80-100) fl MCH 29.5 (26-34) pg MCHC 32.6 (32-36) g/dl RDW 13.6 (11.5-14.5) % Plt Count 174 (150-375) k/mm3 MPV 10.1 (7.4-10.4) fl Immature Gran % (Auto) 0.4 (0-0.5) % Neut % (Auto) 55.9 (45.5-73.1) % Lymph % (Auto) 23.8 (18.3-44.2) % [place] % (Auto) 10.3 H (2.6-8.5) % Eos % (Auto) 8.3 H (0-4.4) % Baso % (Auto) 1.3 H (0.2-1.2) % Lymph # (Auto) 1.27 (0.9-3.2) K/mm3 [place] # (Auto) 0.6 (0.1-0.6) K/mm3 Eos # (Auto) 0.4 H (0-0.3) K/mm3 Baso # (Auto) 0.1 (0.0-0.1) K/mm3 Abs Immat Gran (auto) 0.02 (0.00-0.031) K/mm3 Absolute Neuts (auto) 3.0 (1.3-6.7) K/mm3 Absolute Nucleated RBC 0.000 (0.0-0.012) K/mm3 Nucleated RBC % 0.0 (0.0-0.2) % Sodium 139 (137-145) mmol/L Potassium 3.4 (3.4-5.0) mmol/L Chloride 105 (98-107) mmol/L Carbon Dioxide 28 (22-30) mmol/L Anion Gap 6 (4-12) mmol/L BUN 26 H (7-17) mg/dL Creatinine 1.00 (0.7-1.0) mg/dL Estim Creat Clear Calc 41 ml/min Estimated GFR 54 L (59 - ) Glucose 126 H (65-110) mg/dL Calcium 9.2 (8.4-10.2) mg/dL Total Bilirubin 1.0 (0.2-1.3) mg/dL AST 41 H (14-36) U/L ALT 30 (6-35) U/L Alkaline Phosphatase 115 (38-126) U/L NT-Pro-B Natriuret Pep 230 H (19.9-100) pg/mL Total Protein 6.9 (6.3-8.2) g/dL Albumin 4.0 (3.5-5.1) g/dL Influenza A (RT-PCR) Negative (Negative) Influenza B (RT-PCR) Negative (Negative) RSV (RT-PCR) Negative (Negative) SARS-CoV-2 RNA (RT-PCR) Negative (Negative) Imaging Data Radiologist's impression: ITS Impressions Chest X-Ray 02/08/25 10:32 IMPRESSION: 1. Mild interstitial pulmonary edema and/or pneumonitis not excluded, superimposed upon emphysema. Discharge Plan Discharge Clinical Impression: Asthma exacerbation Patient Disposition: Home Condition: Stable Instructions: Antibiotic Form, Asthma (ED) Additional Instructions: Prednisone as directed for the next 5 days. Continue albuterol as needed. If you have any worsening symptoms then please call or return to the emergency department. Patient Language: Somali Prescriptions: New prednisone 10 mg tablet 10 mg PO DAILY 5 Days Qty: 5 0RF No Action cromolyn 20 mg/2 mL solution for nebulization See Rx Instructions .ROUTE .COMPLEX Qty: 240 6RF Dose Instruction: INHALE 2 ML BY NEBULIZER TWICE DAILY. Rx Instructions: INHALE 2 ML BY NEBULIZER TWICE DAILY. prednisone 10 mg tablet 10 mg PO DAILY Qty: 14 0RF albuterol sulfate 2.5 mg /3 mL (0.083 %) solution for nebulization See Rx Instructions .ROUTE .COMPLEX Qty: 180 8RF Dose Instruction: Inhale 2.5 mg (3 mL) via nebulizer every 4-6 hours as needed for shortness of breath or wheezing Rx Instructions: Inhale 2.5 mg (3 mL) via nebulizer every 4-6 hours as needed for shortness of breath or wheezing albuterol sulfate 90 mcg/actuation HFA aerosol inhaler See Rx Instructions .ROUTE .COMPLEX Qty: 6.7 3RF Dose Instruction: INHALE 1 PUFF BY MOUTH EVERY 4 HOURS NEEDED FOR SHORTNESS OF BREATH Rx Instructions: INHALE 1 PUFF BY MOUTH EVERY 4 HOURS NEEDED FOR SHORTNESS OF BREATH Follow-up/Referrals: Henry Mack MD [Primary Care Provider, Family Practice]
--- NOTE | 2025-02-08 09:48 | ECG_ITS ---
Test Date: 2025-02-08 09:48:53 Measurements Intervals [place] Rate: 87 P: 56 NE: 174 QRS: -76 QRSD: 146 T: 61 QT: 392 QTc: 472 Interpretive Statements SINUS RHYTHM WITH OCCASIONAL SUPRAVENTRICULAR PREMATURE COMPLEXES RIGHT BUNDLE BRANCH BLOCK LEFT ANTERIOR FASCICULAR BLOCK LEFT VENTRICULAR HYPERTROPHY AND ST-T CHANGE CANNOT R/O SEPTAL INFARCT, AGE INDETERMINATE BASELINE ARTIFACT- I, II, III, AVR, AVL, AVF, V1-V6 ABNORMAL ECG Compared to ECG 12/03/2024 13:01:45 NO SIGNIFICANT CHANGE Electronically Signed On 02-08-2025 20:32:11 [employer] by Isak Hernandez D.O.
[2025-02-08 10:13] LABS: Hematocrit 41.4 % (37.0-47.0); Hemoglobin 13.5 g/dL (12.0-15.0); Immature Granulocyte Percent A 0.4 % (0-0.5); Lymphocytes Absolute Auto 1.27 K/mm3 (0.9-3.2); Mean Corpuscular HGB Conc 32.6 g/dl (32-36); Mean Corpuscular Hemoglobin 29.5 pg (26-34); Mean Corpuscular Volume 90.4 fl (80-100); Nucleated Red Blood Cells Absolute Auto 0.000 K/mm3 (0.0-0.012); Nucleated Red Blood Cells Perc 0.0 % (0.0-0.2); Platelet Count Result 174 k/mm3 (150-375); Red Blood Count 4.58 M/mm3 (4.2-5.4); White Blood Count 5.3 K/mm3 (4.5-10.0)
--- OUTSIDE RECORDS SUMMARY | 2025-02-08 10:18 | XMS_ITS | Encounter Summary ---
Author Organization [facility] Health Address [address] [place] [address] Care Team Providers Care Dairy Farm Operator Name Role Phone Unavailable Primary Care Provider Unavailabl e Prior Encounters Date Type Department Care Team Description 2022 11:00 AM CDT Office Visit [facility] [address] [place] [address] Krunal Medina, ADELINA 03/03/2019 Converted CPS Chart Documents [facility] [address] [place] [address] <No scans attached> 03/03/2019 Converted 13x Documents [facility] [address] [place], [place] [id number] <No scans attached> Plan of Treatment Not [...]
--- OUTSIDE RECORDS SUMMARY | 2025-02-08 10:18 | XMS_ITS | Clinical Summary ---
Author Organization [facility] Address [facility] [place] [address] Care Team Providers Care Gate Supervisor Name Role Phone Unavailable Primary Care Provider Unavailabl e Source Comments [facility],non-owned Affiliates and Associated Physician Practices is amultiple site organization consisting of ambulatory clinics and hospital sitesin [place], [place], [place] and [place]. This disclosure is being madepursuant to the Care Everywhere program and may not contain all information available regarding this patient. Last updated 17.[facility] Allergies Active Allergy Reactions Criticality Noted Date [...] age to complete this topic Insurance MEDICARE [facility] MEDICARE [facility] Care Address: [address] [place] [address]
--- OUTSIDE RECORDS SUMMARY | 2025-02-08 10:18 | XMS_ITS | Clinical Summary ---
Author Organization [facility] Health Address [address] [place] [address] Care Team Providers Care Cylinder Press Operator Helper Name Role Phone Unavailable Primary Care Provider [...] Recently Relevant to Health [place] [address]
--- OUTSIDE RECORDS SUMMARY | 2025-02-08 10:18 | XMS_ITS | Clinical Summary ---
Author Organization [employer] [facility] Address [address] Attn: Epic Prelude ADT [place]O [place] [phone] Care Team Providers Care Music Assistant Name Role Phone Unavailable Primary Care [...] times daily. 120 mL 04/10/2022 4:02 PM SYSTEMS SPEC 3 Active predniSONE (DELTASONE) 10 mg tablet Take 1 Tablet (10 mg) by mouth daily. 14 Tablet 01/12/2023 2:03 PM SYSTEMS SPEC 3 Active albuterol sulfate HFA 90 mcg/actuation aerosol inhaler INHALE 1 PUFF BY MOUTH EVERY 4 HOURS NEEDED FOR SHORTNESS OF BREATH 6.7 Gram 8 03/01/2024 2:58 PM SYSTEMS SPEC 4 Active cromolyn (INTAL) 20 mg/2 mL [...] of breath or wheezing 180 mL 8 01/13/2025 3:03 PM SYSTEMS SPEC 5 Active albuterol sulfate 90 mcg/Actuation inhaler INHALE 1 PUFF BY MOUTH EVERY 4 HOURS NEEDED FOR SHORTNESS OF BREATH 6.7 Gram 3 12/29/2024 3:09 PM SYSTEMS SPEC 5 Active albuterol sulfate 90 mcg/Actuation inhaler Take 1 Puff by inhalation every 4 hours as needed for shortness of breath. 6.7 Gram 3 01/21/2025 11:31 AM SYSTEMS SPEC 5 Active Social History Tobacco Use Types Packs/Day Years [...] (1 - 1-dose 75+ series) 2025 Insurance [address] [place], [place] [id number] RX [employer] Medicare Part D
[2025-02-08 10:37] LABS: Alanine Aminotransferase 30 U/L (6-35); Albumin Level 4.0 g/dL (3.5-5.1); Alkaline Phosphatase 115 U/L (38-126); Anion Gap 6 mmol/L (4-12); Aspartate Amino Transferase 41 U/L (14-36); Bilirubin,Total 1.0 mg/dL (0.2-1.3); Blood Urea Nitrogen 26 mg/dL (7-17); Calcium 9.2 mg/dL (8.4-10.2); Carbon Dioxide 28 mmol/L (22-30); Chloride 105 mmol/L (98-107); Estimated CRCL calculation 41 ml/min; Estimated Glomerular Filt Rate 54; Glucose 126 mg/dL (65-110); Potassium 3.4 mmol/L (3.4-5.0); Sodium 139 mmol/L (137-145); Total Protein 6.9 g/dL (6.3-8.2)
[2025-02-08 10:40] LABS: NT Pro B Type Natriuretic Pept 230 pg/mL (19.9-100)
[2025-02-08 10:48] LABS: Influenza A QL RT-PCR Negative (Negative); Influenza B QL RT-PCR Negative (Negative); RSV RNA, RT-PCR Negative (Negative); SARS-CoV-2 RNA PCR Negative (Negative)
== END 2025-02-08 13:12 | disposition home or self-care (01) ==
PROVIDERS: Emergency Provider Emergency Medicine; PCP Family Medicine
DX: J45.31 Mild persistent asthma with (acute) exacerbation (principal); I12.9 Hypertensive chronic kidney disease with stage 1 through stage 4 chronic kidney disease, or unspecified chronic kidney disease; E78.00 Pure hypercholesterolemia, unspecified; N18.9 Chronic kidney disease, unspecified; F03.90 Unspecified dementia, unspecified severity, without behavioral disturbance, psychotic disturbance, mood disturbance, and anxiety; F20.9 Schizophrenia, unspecified; Z20.822 Contact with and (suspected) exposure to COVID-19
CPT/HCPCS: 36415; 71045; 80053; 83880; 85025; 87637; 93005; 94640; 99284